=== PATIENT | male | born 1955 | race Caucasian/White ===

== ENCOUNTER 2017-08-22 16:42 | Inpatient (IN) ==
[2017-08-22] MEDS ORDERED: 0.9 % Sodium Chloride 1,000 ML IVC ONE (17:08)
--- NOTE | 2017-08-22 17:10 | Emergency Department Note ---
Disposition Clinical Impression: Afib Qualifiers: Atrial fibrillation type: unspecified Qualified Code(s): I48.91 - Unspecified atrial fibrillation CHF (congestive heart failure) Qualifiers: Heart failure type: unspecified Heart failure chronicity: unspecified Qualified Code(s): I50.9 - Heart failure, unspecified Disposition: Admitted As Inpatient Condition: Fair Referrals: Nalini Romero MD [Partnered Physician] - Tammy Cotter [Partnered Physician] - Forms: ED Satisfaction Letter Time of Disposition: 19:10 Arrhythmia/Palpitations HPI - General Chief Complaint: ED Arrhythmia/Palpitations Stated Complaint: High heart rate Time Seen by Provider: 08/22/17 17:01 Source: patient Mode of arrival: ambulatory Limitations: no limitations Nursing Notes Reviewed: Yes Vital Signs Reviewed: Yes - History of Present Illness HPI Narrative: 62-year-old male with a history of tobacco use presents for evaluation for a fast heart rate. Patient states he was evaluated with an echo prior to arrival they noted his heart rate was beating fast. Patient denies history of A. fib. Patient states that symptoms initially were approximately 5-6 weeks ago started with a dry cough. Since in the bases noted progressive shortness of breath. Patient has any fevers. Patient denies any chest pain or palpitations. Patient denies any history of known diagnosis of A. fib. Denies history of blood clots in his lungs are's legs. Patient denies any abdominal pain. No nausea or vomiting. Patient states he does not see a doctor regularly and has recently started with regular doctor appointment within the past month. - Related Data Home Medications Medication Instructions Recorded Confirmed Acetylcysteine [Nac] 500 mg PO DAILY 08/22/17 08/22/17 Benzonatate [Tessalon] 1 cap PO TID PRN 08/22/17 08/22/17 Furosemide [Lasix] 20 mg PO DAILY 08/22/17 08/22/17 Allergies Allergy/AdvReac Type Severity Reaction Status Date / Time No Known Allergies Allergy Verified 08/22/17 16:44 All systems ED: reviewed and negative except as stated. Constitutional: Denies: fever Cardiovascular: Denies: chest pain Respiratory: Reports: cough, dyspnea. Denies: sputum production Gastrointestinal: Denies: abdominal pain, nausea, vomiting Past Medical History - Past Medical History Source: patient Medical history: Reports: no medical history Psychiatric history: Reports: no psych history - Social History Smoking Status: Current every day smoker Smokeless Tobacco Status: No Alcohol use: Reports: occasionally Drug use: Reports: none Physical Exam - General Limitations: no limitations General appearance: alert, in no apparent distress - Head Head exam: atraumatic, normocephalic, normal inspection - Eye Eye exam: Present: normal appearance, PERRL, EOMI - ENT ENT exam: normal exam, normal oropharynx, mucous membranes moist - Neck Neck exam: Present: normal inspection, full ROM, trachea midline - Chest Chest inspection: Present: normal inspection, symmetric chest wall rise - Respiratory Respiratory exam: Present: normal lung sounds bilaterally. Absent: respiratory distress - Cardiovascular Cardiovascular exam: Present: tachycardia, irregular rhythm. Absent: systolic murmur - Abdominal Exam Abdominal exam: Present: soft, Non-Tender - Extremities Exam Extremities exam: Present: normal inspection. Absent: pedal edema - Expanded Lower Extremity Exam Neurovascular/Tendon exam: Present: normal capillary refill - Back Exam Back exam: Present: normal inspection, full ROM. Absent: tenderness - Neurological Exam Neurological exam: Present: alert, oriented X3 - Skin Skin exam: Present: warm, dry, intact, normal color Course Course Narrative: Patient blood pressure is preserved with a heart rate in the 150s to 170s. Patient will get basic labs, EKG troponin as well as rate control with Cardizem. Disposition admission. - Reevaluation(s) Reevaluation #1: Patient seen and examined. Patient's heart rate has improved. Patient awaiting a CT of the chest given a positive d-dimer. Time: 18:19 - Consultations Consultation #1: Spoke with Cardiology. Recommend heparin. Also recommends metoprolol 5IV and 25mg PO XL. Diuresis as tolerated with blood pressure. Time: 19:08 Vital Signs Temperature 97.8 F 08/22/17 16:45 Pulse Rate 172 08/22/17 16:45 Respiratory Rate 18 08/22/17 16:45 Blood Pressure 123/85 08/22/17 16:45 O2 Sat by Pulse Oximetry 98 08/22/17 16:45 Temperature 97.8 F 08/22/17 16:45 Pulse Rate 126 08/22/17 18:53 Respiratory Rate 16 08/22/17 18:53 Blood Pressure 107/96 08/22/17 18:53 O2 Sat by Pulse Oximetry 97 08/22/17 18:53 Oxygen Delivery Oxygen Delivery Room Air Arrhythmia/Palpitations - MDM Narrative Medical decision making narrative: 62-year-old male percent for evaluation of A. fib. Patient had an echo obtained earlier today which showed evidence of heart failure. Patient initially was started on Cardizem bolus however given the element of heart failure bushra was secondarily given. Patient had a CTA which showed no evidence of central or subsegmental pulmonary embolism here patient did have an elevated troponin. Patient is given an aspirin. Patient was also heparinized given his history of heart failure as well as A. fib. Patient denies any dark tarry stools or blood in stool no contraindications to heparinizing. Patient will be admitted to hospital service. Cardiology consult completed. - Lab Data Lab results reviewed: Yes I reviewed the patient's lab results. Result diagrams: 08/22/17 16:55 08/22/17 16:55 Lab Results 08/22/17 08/22/17 08/22/17 Range/Units 16:55 16:55 16:55 WBC 9.5 (4.3-11.1) K/mcL RBC 4.53 (4.19-5.50) M/mcL Hgb 14.9 (12.9-16.9) g/dL Hct 44.4 (37.5-50.1) % MCV 98.0 (83.0-100.0) fL MCH 32.9 (28.0-33.3) pg MCHC 33.6 (31.6-35.5) g/dL RDW 13.6 (11.5-14.5) % Plt Count 179 (140-400) K/mcL MPV 11.1 (9.4-12.4) fL Immature Gran % 0.3 (0-4) % Seg Neutrophils % 73.5 % Lymphocytes % 13.5 % Monocytes % 9.1 % Eosinophils % 2.8 % Basophils % 0.8 % Neutrophils # 7.0 (1.6-8.9) K/mcL Lymphocytes # 1.3 (0.6-4.6) K/mcL Monocytes # 0.9 (0.0-1.3) K/mcL Eosinophils # 0.3 (0.0-0.6) K/mcL Basophils # 0.1 (0.0-0.2) K/mcL PT (9.4-12.1) Seconds INR APTT (26.0-36.0) Seconds D-Dimer (0-500) ng/mLFEU Sodium 134 L (136-145) mEq/L Potassium 4.0 (3.5-5.1) mEq/L Chloride 103 (98-107) mEq/L Carbon Dioxide 23 (23-29) mEq/L BUN 17 (8-23) mg/dL Creatinine 0.85 (0.70-1.30) mg/dL Est GFR ( Amer) > 60 (> 60) Est GFR (Non-Af Amer) > 60 (> 60) BUN/Creatinine Ratio 20 (6-26) Glucose 96 (70-105) mg/dL Calculated Osmolality 279 L (280-300) Calcium 9.8 (8.6-10.3) mg/dL Troponin I 0.05 H* (< 0.04) ng/mL 08/22/17 Range/Units 16:55 WBC (4.3-11.1) K/mcL RBC (4.19-5.50) M/mcL Hgb (12.9-16.9) g/dL Hct (37.5-50.1) % MCV (83.0-100.0) fL MCH (28.0-33.3) pg MCHC (31.6-35.5) g/dL RDW (11.5-14.5) % Plt Count (140-400) K/mcL MPV (9.4-12.4) fL Immature Gran % (0-4) % Seg Neutrophils % % Lymphocytes % % Monocytes % % Eosinophils % % Basophils % % Neutrophils # (1.6-8.9) K/mcL Lymphocytes # (0.6-4.6) K/mcL Monocytes # (0.0-1.3) K/mcL Eosinophils # (0.0-0.6) K/mcL Basophils # (0.0-0.2) K/mcL PT 11.3 (9.4-12.1) Seconds INR 1.1 APTT 26.4 (26.0-36.0) Seconds D-Dimer 1223 H (0-500) ng/mLFEU Sodium (136-145) mEq/L Potassium (3.5-5.1) mEq/L Chloride (98-107) mEq/L Carbon Dioxide (23-29) mEq/L BUN (8-23) mg/dL Creatinine (0.70-1.30) mg/dL Est GFR ( Amer) (> 60) Est GFR (Non-Af Amer) (> 60) BUN/Creatinine Ratio (6-26) Glucose (70-105) mg/dL Calculated Osmolality (280-300) Calcium (8.6-10.3) mg/dL Troponin I (< 0.04) ng/mL - Radiology Data Radiology results reviewed: Yes I reviewed the patient's radiology results. Chest X-Ray 08/22/17 17:04 IMPRESSION: Findings suggest the possibility of congestive heart failure D/ / Jong Shah MD / Jong Shah MD Interpreting Provider: Jong Shah MD Chest CTA 08/22/17 18:05 IMPRESSION: 1. Limited evaluation of subsegmental pulmonary artery branches secondary to respiratory motion artifact. No central or segmental pulmonary embolism is detected. 2. Nonspecific appearance of the remainder of the study, with bronchial wall thickening and alveolar ground-glass opacity. That could be secondary to pulmonary edema, especially given the interlobular septal thickening. However, infectious bronchitis/alveolitis would be considered as well. D/ / Cipriano Gomez MD / Cipriano Gomez MD Interpreting Provider: Cipriano Gomez MD - EKG Data EKG attestation: Yes I reviewed and interpreted this EKG. Rate: tachycardia Rhythm: A.Fib [place]/QRS: normal When compared to previous EKG there are: changes noted Interpretation: nonspecific ST-T wave changes S.B.A.R. - S.B.A.R. Situation: Demographics Background: Presenting Complaint Assessment: Vital Signs, Course and respsone to treatment, Patient/Family Expectation Recommendation: Barrier(s) to disposition, Recommendation based on pending studies, treatments, or consults S.B.A.R. Report Given to: Dilip Forte Repor Time: 18:44 Attestation Statement - Attestation Attestation: I examined this patient and my medical decision-making was reviewed with the Resident Physician. I agree with the documented findings, disposition and treatment plan as described except to the extent set forth below. Patient to the ED with a chief complaint of atrial fibrillation. Patient with today for an outpatient echo as ordered by his PCP. He was found to be in atrial fibrillation. Patient states he has not felt well for a few weeks. He has not been sleeping well. Denies palpitations. He has had some dyspnea on exertion. Patient is in no acute distress on examination. Satting well on room air. Heart tachycardia and irregularly irregular. Plan. CHF workup. Patient's in atrial fibrillation on his EKG with a rate in the 160s. Starting Cardizem. We will discuss with cords. 35 minutes of critical care exclusive of separately billable procedures.
[2017-08-22 17:23] LABS: Basophils # 0.1 K/mcL (0.0-0.2); Basophils % 0.8 %; Eosinophils # 0.3 K/mcL (0.0-0.6); Eosinophils % 2.8 %; Hematocrit 44.4 % (37.5-50.1); Hemoglobin 14.9 g/dL (12.9-16.9); Immature Granulocytes % 0.3 % (0-4); Lymphocytes # 1.3 K/mcL (0.6-4.6); Lymphocytes % 13.5 %; Mean Corpuscular HGB Conc 33.6 g/dL (31.6-35.5); Mean Corpuscular Hemoglobin 32.9 pg (28.0-33.3); Mean Platelet Volume 11.1 fL (9.4-12.4); Monocytes # 0.9 K/mcL (0.0-1.3); Monocytes % 9.1 %; Platelet Count 179 K/mcL (140-400); Red Blood Count 4.53 M/mcL (4.19-5.50); Red Cell Distribution Width 13.6 % (11.5-14.5); Segmented Neutrophils % 73.5 %
[2017-08-22 17:38] LABS: BUN/Creatinine Ratio 20 (6-26); Blood Urea Nitrogen 17 mg/dL (8-23); Calcium 9.8 mg/dL (8.6-10.3); Carbon Dioxide 23 mEq/L (23-29); Chloride 103 mEq/L (98-107); Glucose 96 mg/dL (70-105); Osmolality,Calculated 279 (280-300); Sodium 134 mEq/L (136-145); eGFR For Non-African Americans > 60 (> 60)
[2017-08-22 18:01] LABS: INR 1.1; Prothrombin Time 11.3 Seconds (9.4-12.1)
[2017-08-22 18:03] LABS: Activated Partial Thrombo Time 26.4 Seconds (26.0-36.0)
[2017-08-22] MEDS ORDERED: *HR* Heparin 5,000 UNIT/ML VIAL IVP ONE (18:51)
[2017-08-22] MEDS ORDERED: *HR* Metoprolol 5 MG/5 ML VIAL IVP ONE (18:55)
[2017-08-22] MEDS: Heparin 25,000 UNIT/500 ML D5W 25,000 UNIT/500 ML BAG IVC SCH (19:11)
[2017-08-22 19:15] LABS: INR 1.1; Prothrombin Time 12.2 Seconds (9.4-12.1)
[2017-08-22 19:17] LABS: Activated Partial Thrombo Time 26.5 Seconds (26.0-36.0)
[2017-08-22 19:28] LABS: Thyroid Stimulating Hormone 1.695 mcIU/mL (0.340-5.600)
[2017-08-22] MEDS ORDERED: Amiodarone Premix 360 MG/200 ML BAG IVC ONE (19:46)
[2017-08-23] MEDS ORDERED: *HR* HYDROcodone/Acet 5/325 mg TABLET PO PRN
[2017-08-23] MEDS ORDERED: Naloxone 0.4 MG/ML INJ IVP PRN
--- NOTE | 2017-08-23 00:11 | Internal Med History&Physical ---
Date of Encounter: 08/23/17 Time of Encounter: 00:07 Assessment and Plan (1) Atrial fibrillation Current visit: Yes Status: Acute 62/male Admitted from emergency room for evaluation of new onset of atrial fibrillation. Had recent echocardiogram done: Ejection fraction: 20/25 percent. On examination Mildly elevated JVP. Bilateral basal crepitations. S3 present. Trace pedal edema. Assessment: New onset of atrial fibrillation likely secondary to cardiomyopathy possibly secondary to coronary artery disease/ischemic heart disease Plan: Admit as inpatient. Cardiology consult. Cycle troponin. IV Cardizem is contraindicated as patient's ejection fraction is less than 35%. Intravenous heparin as a anticoagulation. Intravenous amiodarone for rate control. Cardiology was informed about admission from the emergency room. Nothing by mouth from midnight for possible procedure tomorrow. I have examined this patient in 2 N Briefly discussed above with the patient. Patient verbalized understanding. Qualifiers: Atrial fibrillation type: unspecified Qualified Code(s): I48.91 - Unspecified atrial fibrillation (2) Systolic congestive heart failure Current visit: Yes Status: Acute New-onset of systolic congestive heart failure. We will await for cardiology recommendation. Qualifiers: Heart failure chronicity: unspecified Qualified Code(s): I50.20 - Unspecified systolic (congestive) heart failure (3) Smoking addiction Current visit: Yes Status: Acute (4) Obesity Current visit: Yes Status: Acute Qualifiers: Obesity type: unspecified obesity type Obesity classification: unspecified obesity classification Serious obesity comorbidity presence: unspecified whether serious comorbidity present Qualified Code(s): E66.9 - Obesity, unspecified (5) DVT prophylaxis Current visit: Yes Status: Acute Heparin drip Medical decision making: This patient has a moderate to severe risk of worsening in spite of being on appropriate medication to the underlying chronic comorbid conditions. Internal Medicine - H&P: HPI Chief complaint: shortness of breath Admitted From: Emergency Dept Plans for Post Hospital Care: Home History of present illness: PCP: Heather Gayle Nurse Leader : None Brief PMH: None HPI: Patient claims that around 6 weeks ago he started having dry cough which was lasted long more than expectoration. During this episode of dry cough patient noted that his frequency of palpitations and was progressively getting worse. Patient was getting better on a few occasions but noted that on the minimal exertion he was a short of breath. Patient was evaluated by primary care provider and recommended to get an echocardiogram. Patient came to this hospital today for echocardiogram and it was noted that during the echocardiogram patient was in atrial fibrillation with a rapid ventricular rate. Patient was sent to emergency room for further evaluation. Workup in the emergency room: Patient was evaluated in the emergency room. Patient was started on heparin drip/amiodarone drip as per recommendations by cardiology. Noted that limited echocardiogram showed patient's ejection fraction is 20-25% Reason for admission: Newly diagnosed acute systolic congestive heart failure with atrial fibrillation. Possible etiology: atherosclerotic coronary disease. Family history: Noncontributory Past Med Surg Social Fam HX - Past Medical History Medical history: no medical history Psychiatric history: no psych history - Social History Smoking Status: Current every day smoker Smokeless Tobacco Status: No Alcohol use: occasionally Drug use: none Internal Medicine - H&P: Meds Acetylcysteine [Nac] 500 mg PO DAILY 08/22/17 [History] Benzonatate [Tessalon] 1 cap PO TID PRN 08/22/17 [History] Furosemide [Lasix] 20 mg PO DAILY 08/22/17 [History] 3 Allergy/AdvReac Type Severity Reaction Status Date / Time No Known Allergies Allergy Verified 08/22/17 16:44 All Systems PM: A 10-system review of systems was performed and is negative for pertinent findings except as documented above in the HPI. - Constitutional Constitutional: no chills, no fever(s), no night sweats - EENT Eyes: no change in vision, no discharge, no pain, no photophobia Ears: no ear discharge, no ear pain, no tinnitus Nose, mouth and throat: no dysphagia, no nasal discharge, no neck pain, no sore throat - Cardiovascular Cardiovascular ROS IM: no chest pain, no diaphoresis, no dyspnea, no lightheadedness, no palpitations, no syncope - Respiratory Respiratory: no cough, no dyspnea, no wheezing, no excessive phlegm production - Gastrointestinal Gastrointestinal: no abdominal pain, no diarrhea, no hematemesis, no hematochezia, no melena, no nausea, no vomiting - Musculoskeletal Musculoskeletal ROS IM: no numbness, no tingling - Integumentary Integumentary IM: no rash, no unusual bruising - Neurological Neurological ROS: no confusion, no convulsions, no focal weakness, no numbness, no tingling, no tremor(s) - Hematologic/Lymphatic Hematologic/Lymphatic: no easy bruising - Constitutional Vitals: Temp Pulse Resp BP Pulse Ox 98.6 F 159 20 117/107 98 08/22/17 21:04 08/22/17 21:04 08/22/17 21:04 08/22/17 21:04 08/22/17 21:04 General appearance: Present: A&O X 3, pleasant, no acute distress, answers questions appropriately - Head Head exam: Present: atraumatic, normocephalic - Eye Eye exam: Present: PERRL, conjuntiva pink, sclera anicteric Pupils: Present: PERRL - Neck Neck exam general surgery: Present: supple, trachea midline. Absent: lymphadenopathy - Respiratory Respiratory exam: Present: CTAB. Absent: accessory muscle use, rales, rhonchi, wheezes - Cardiovascular Cardiovascular exam: Present: RRR, +S1, +S2. Absent: diastolic murmur, gallop, rubs, systolic murmur - GI/Abdominal GI/Abdominal exam: Present: normal bowel sounds, soft, no peritoneal signs. Absent: distended, tenderness - Extremities Exam Extremities exam: Present: warm, radial pulses palpable and symmetrical. Absent : calf tenderness, cyanotic, pedal edema - Neurological Exam Neurological exam: Present: CN II-XII intact, oriented X3, no focal deficits. Absent: pronater drift, facial droop, speech deficit - Skin Skin exam: Present: dry, intact Internal Med - H&P Results - Labs CBC & Chem 7: 08/22/17 16:55 08/22/17 16:55 Labs: Cardiac Enzymes 08/22/17 Range/Units 22:24 Troponin I < 0.03 (< 0.04) ng/mL
[2017-08-23 01:22] LABS: Basophils # 0.1 K/mcL (0.0-0.2); Basophils % 1.1 %; Eosinophils # 0.2 K/mcL (0.0-0.6); Eosinophils % 2.7 %; Hematocrit 40.8 % (37.5-50.1); Hemoglobin 13.9 g/dL (12.9-16.9); Immature Granulocytes % 0.4 % (0-4); Lymphocytes # 1.3 K/mcL (0.6-4.6); Lymphocytes % 15.8 %; Mean Corpuscular HGB Conc 34.1 g/dL (31.6-35.5); Mean Corpuscular Volume 96.9 fL (83.0-100.0); Mean Platelet Volume 11.3 fL (9.4-12.4); Monocytes # 0.8 K/mcL (0.0-1.3); Monocytes % 9.8 %; Neutrophils # 5.8 K/mcL (1.6-8.9); Platelet Count 168 K/mcL (140-400); Red Blood Count 4.21 M/mcL (4.19-5.50); Red Cell Distribution Width 13.7 % (11.5-14.5); Segmented Neutrophils % 70.2 %
[2017-08-23] MEDS: 0.9 % Sodium Chloride 1,000 ML IVC SCH ×2 (01:35→15:09)
[2017-08-23 01:44] LABS: Alanine Aminotransferase 31 Units/L (7-52); Albumin 3.9 g/dL (3.5-5.7); Albumin/Globulin Ratio 1.8 (1.1-2.2); Alkaline Phosphatase 55 Units/L (34-104); Aspartate Amino Transferase 32 Units/L (13-39); BUN/Creatinine Ratio 24 (6-26); Bilirubin,Total 1.2 mg/dL (0.3-1.0); Blood Urea Nitrogen 18 mg/dL (8-23); Calcium 9.4 mg/dL (8.6-10.3); Carbon Dioxide 21 mEq/L (23-29); Chloride 108 mEq/L (98-107); Chol/HDL Ratio 3.1 (0-4.9); Cholesterol 162 mg/dL (< 200); Globulin 2.2 g/dL (2.4-3.5); Glucose 110 mg/dL (70-105); HDL Cholesterol 53 mg/dL (40-59); LDL Cholesterol,Calculated 92 mg/dL (0-99); Osmolality,Calculated 285 (280-300); Phosphorous 3.7 mg/dL (2.7-4.5); Potassium 4.1 mEq/L (3.5-5.1); Sodium 136 mEq/L (136-145); Total Protein 6.1 g/dL (6.4-8.9); Triglycerides 85 mg/dL (< 150); eGFR For Non-African Americans > 60 (> 60)
[2017-08-23] MEDS ORDERED: Amiodarone Premix 360 MG/200 ML BAG IVC ONE (02:38)
[2017-08-23] MEDS ORDERED: Amiodarone Premix 360 MG/200 ML BAG IVC SCH (02:45)
[2017-08-23] MEDS: Heparin 25,000 UNIT/500 ML D5W 25,000 UNIT/500 ML BAG IVC SCH (09:19)
--- NOTE | 2017-08-23 11:08 | Internal Med Progress Note ---
Date of Encounter: 08/23/17 Time of Encounter: 10:25 - Assessment and plan (1) Atrial fibrillation with RVR Current Visit: Yes Status: Acute Assessment and plan: New onset A. fib and found be in A. fib with RVR. Troponin initially midly elevated at 0.05 then 2 negative troponins. Most likely a fib 2/2 to systolic CHF. Patient is still in A. fib with RVR. Patient was initially placed on a Cardizem drip and then switched to amiodarone drip. Cardiology is following and appreciate recommendations. Echo 08/22/17 showed an EF of 20-25%, Severe global left ventricular systolic dysfunction, severely dilated L atrium. Plan: - stop Amiodarone drip and add metoprolol 25mg, per cardiology - Heparin drip - possible [facility] on Saturday - diet: cardiac diet (2) Systolic congestive heart failure Current Visit: Yes Status: Acute Assessment and plan: Echo 08/22/17 showed EF 20-25% with severe systolic dysfunction of LV - will consider adding ASHISH after BP increase - plan for [facility], possibly saturday Qualifiers: Heart failure chronicity: unspecified Qualified Code(s): I50.20 - Unspecified systolic (congestive) heart failure (3) DVT prophylaxis Current Visit: Yes Status: Acute Assessment and plan: heparin drip (4) Smoking addiction Current Visit: Yes Status: Acute - Subjective Interval history: 62-year-old male who presented to the ED after echo showing 20-25% EF patient is found to be in A. fib with RVR and acute systolic congestive heart failure. Today patient states that he is not having any chest pain, shortness of breath, palpitations, dizziness. Patient states that he did not have any of these symptoms upon arrival and came in due to abnormal echo. Temporary review of systems is negative except what is written in history of present illness. - Constitutional Vitals: Temp Pulse Resp BP Pulse Ox 98.3 F 136 20 109/89 98 08/23/17 08:10 08/23/17 10:20 08/23/17 10:20 08/23/17 10:20 08/23/17 10:20 General appearance: Present: A&O X 3, pleasant, no acute distress, answers questions appropriately Exam: Constitutional: Alert, in no acute distress, well nourished, well developed. Head: Normocephalic, atraumatic, normal contour and symmetric, no masses, lesions or scars Heart: irregularly irregular rhythm, no murmurs Lungs: Clear to auscultation, no wheezes, rales, or rhonchi Abdomen: Soft, nondistended, nontender, and no masses palpable, bowel sounds present and normal, no guarding or rigidity. Extremities: No clubbing, cyanosis, or edema, radial pulse +2/4, capillary refill <2sec. Skin: Skin warm and dry, no lesions, no rashes, no jaundice Neurologic: Cranial nerves II through XII grossly intact, no focal deficits, strength within normal limits in all extremities Psych: Cooperative with exam, good eye contact, cognitive function intact, judgment good insight good, speech clear, thought process logical, and goal directed Internal Medicine: Result - Labs CBC & Chem 7: 08/23/17 01:04 08/23/17 01:04 Labs: Short CBC 08/23/17 Range/Units 01:04 WBC 8.3 (4.3-11.1) K/mcL Hgb 13.9 (12.9-16.9) g/dL Hct 40.8 (37.5-50.1) % Plt Count 168 (140-400) K/mcL Neutrophils # 5.8 (1.6-8.9) K/mcL BMP 08/23/17 01:04 Sodium 136 Potassium 4.1 Chloride 108 H Carbon Dioxide 21 L BUN 18 Creatinine 0.76 Glucose 110 H Calcium 9.4 Cardiac Enzymes 08/22/17 08/23/17 08/23/17 Range/Units 22:24 01:04 06:23 Troponin I < 0.03 < 0.03 < 0.03 (< 0.04) ng/mL Liver Function 08/23/17 Range/Units 01:04 Total Bilirubin 1.2 H (0.3-1.0) mg/dL AST 32 (13-39) Units/L ALT 31 (7-52) Units/L Alkaline Phosphatase 55 (34-104) Units/L Albumin 3.9 (3.5-5.7) g/dL - ABG Interpretation ABG results: PT/INR, D-dimer PT 12.2 Seconds (9.4-12.1) H 08/22/17 18:58 D-Dimer 1223 ng/mLFEU (0-500) H 08/22/17 16:55 Consult Discharge Plan - Plan Referrals: Nalini Romero MD [Primary Care Provider] - 08/30/17 12:00 pm (8:30 appointment for 08/30 cancelled)
--- NOTE | 2017-08-23 11:12 | Cardiology Consult Note ---
<Mary Lou Villalobos Dann - Last Filed: 08/23/17 13:16> Date of Encounter: 08/23/17 Time of Encounter: 09:00 Assessment and Plan (1) Afib Current Visit: Yes Status: Acute Per cardiology: -No previous history of a.fib. Admitted with a.fib RVR. -[id number] score 1 (CHF). Currently on heparin drip. -Was started on amiodarone drip per primary service. -Average HR previous 12 hours noted to be 117, a.fib. -Denies symptoms. -Discussed and reviewed with , will stop amiodarone drip and will start beta bushra. -Will continue to monitor. Qualifiers: Atrial fibrillation type: unspecified Qualified Code(s): I48.91 - Unspecified atrial fibrillation (2) Cardiomyopathy Current Visit: Yes Status: Acute Per cardiology: -TTE with LVEF 20-25% global hypokinesis, mild LVH, mildly dilated LV, mildly dilated and hypokinetic RV, severely dilated LA, mild MR, mild PH. -Denies previous cardiac testing. -Possibly tachycardia induced, aymptomatic in a.fib RVR. -Will add beta bushra. -Consider adding kalee inhibitor if BP will tolerate. -Plan for [facility] possibly Saturday. -Will continue to monitor. Qualifiers: Cardiomyopathy type: unspecified Qualified Code(s): I42.9 - Cardiomyopathy , unspecified Discussion w patient/family: The assessment and plan as outlined above was discussed with the patient who expressed understanding and agreement. All questions were answered. Thank you for involving us in the care of your patient. Please call with any questions. Discussed and reviewed with . History of Present Illness Consult date: 08/22/17 Requesting physician: Adiel Rahman Consult reason: a.fib RVR, cardiomyopathy Chief complaint: shortness of breath History of present illness: Mr. Aburto is a 62 year old male with a relevant past medical history of varicose veins. Denies other medical history. Patient presented to [facility] for an outpatient echocardiogram. TTE was ordered by PCP for shortness of breath. 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 Patient denies chest pain, however states has had some chest heaviness while laying flat. Admits to increased shortness of breath. Denies palpitations or fluttering. Denies current chest pain/heaviness. Denies increased edema or weight gain. Patient reports recent cold like symptoms. Past Med Surg Social Fam HX - Past Medical History Attestation: Yes The following information was validated with the patient. Source: patient, old records reviewed Medical history: no medical history Psychiatric history: no psych history - Social History Smoking Status: Current every day smoker Smokeless Tobacco Status: No Alcohol use: occasionally Drug use: none Medications and Allergies Acetylcysteine [Nac] 500 mg PO DAILY 08/22/17 [History] Benzonatate [Tessalon] 1 cap PO TID PRN 08/22/17 [History] Furosemide [Lasix] 20 mg PO DAILY 08/22/17 [History] 3 Allergy/AdvReac Type Severity Reaction Status Date / Time No Known Allergies Allergy Verified 08/22/17 16:44 All Systems Review: The remainder of the systems were reviewed and are negative - Cardiovascular Cardiovascular: as per HPI, dyspnea at rest, dyspnea on exertion Physical Examination Vital Signs, Last 4 Hours Temp Pulse Resp BP Pulse Ox 08/23/17 10:20 136 20 109/89 98 08/23/17 08:11 98 08/23/17 08:10 98.3 F 107 20 121/92 98 08/23/17 08:01 128 08/23/17 07:57 98.3 F 124 20 112/81 96 General: Conversant, No Apparent Distress HEENT: Atraumatic, Normocephaly, Mucus Membranes Moist Neck: No JVD, Normal carotid pulses Cardiac: Normal S1 and S2, No Murmur, Other (Irregularly, irregular. Tachycardic. ) Lungs: Normal Breath Sounds, No Wheeze, Rales, Rhonchi Neuro: Alert and responsive, No focal deficits noted Abdomen: Soft, Non-Tender Skin: No rashes noted on visualized skin Musculoskeletal: No Chest Wall Tenderness Extremities: No Clubbing, No Cyanosis, No Edema, Normal Pulses Results 08/23/17 01:04 08/23/17 01:04 Lab Results Impressions Chest X-Ray 08/22/17 17:04 IMPRESSION: Findings suggest the possibility of congestive heart failure D/ / Jong Shah MD / Jong Shah MD Interpreting Provider: Jong Shah MD Chest CTA 08/22/17 18:05 IMPRESSION: 1. Limited evaluation of subsegmental pulmonary artery branches secondary to respiratory motion artifact. No central or segmental pulmonary embolism is detected. 2. Nonspecific appearance of the remainder of the study, with bronchial wall thickening and alveolar ground-glass opacity. That could be secondary to pulmonary edema, especially given the interlobular septal thickening. However, infectious bronchitis/alveolitis would be considered as well. D/ / Cipriano Gomez MD / Cipriano Gomez MD Interpreting Provider: Cipriano Gomez MD Active Medications Hydrocodone Bitart/Acetaminophen ([place] 5-325 Mg) 1 tab PO Q6HR PRN PRN Reason: Moderate Pain Stop: 02/22/18 00:01 Last Admin: 08/23/17 01:35 Dose: 1 tab Heparin Sodium/Dextrose (Heparin 25,000 Unit/500 Ml D5w) 25,000 unit in 500 mls @ 33.58 mls/hr IVC .[id number] ANDREAS; 14 UNIT/KG/HR PRN Reason: Protocol Stop: 02/21/18 19:01 Last Admin: 08/23/17 09:19 Dose: 13.99 unit/kg/hr, 33.58 mls/hr Sodium Chloride (0.9 % Sodium Chloride) 1,000 mls @ 70 mls/hr IVC .[id number] ADNREAS Stop: 08/24/17 04:34 Last Admin: 08/23/17 01:35 Dose: 70 mls/hr Amiodarone HCl/Dextrose (Amiodarone Drip Premix 360mg/200ml) 360 mg in 200 mls @ 16.667 mls/hr IVC CONT ANDREAS PRN Reason: 0.5 MG/MIN Stop: 02/22/18 02:46 Last Admin: 08/23/17 03:29 Dose: 0.5 mg/min, 16.667 mls/hr Naloxone HCl (Narcan) 0.4 mg IVP Q2MIN PRN PRN Reason: SEE COMMENTS Stop: 02/22/18 00:01 Laboratory Tests 08/22/17 08/22/17 08/22/17 16:55 16:55 16:55 Hgb Potassium Creatinine Magnesium Troponin I 0.05 H* B-Natriuretic Peptide 510 H LDL Cholesterol, Calc TSH 1.695 08/22/17 08/23/17 08/23/17 22:24 01:04 01:04 Hgb 13.9 Potassium Creatinine Magnesium Troponin I < 0.03 < 0.03 B-Natriuretic Peptide LDL Cholesterol, Calc TSH 08/23/17 08/23/17 01:04 06:23 Hgb Potassium 4.1 Creatinine 0.76 Magnesium 2.0 Troponin I < 0.03 B-Natriuretic Peptide LDL Cholesterol, Calc 92 TSH - Imaging and Cardiology Chest Xray: report reviewed Echo: report reviewed - EKG Interpretation EKG results cardiology: personally reviewed (ECG with eden RVR.), other ( Telemetry reviewed with average HR previous 12 hours noted to be 117, atrial fibrillation. PVCs noted.) Consult Discharge Plan - Plan Referrals: Nalini Romero MD [Primary Care Provider] - 08/30/17 12:00 pm (8:30 appointment for 08/30 cancelled) <Jesus Tineo - Last Filed: 08/23/17 14:13> Date of Encounter: 08/23/17 - Attending Attestation 62 YOM with new onset CM global HK EF 25% with severe LAE. Patient denies palpitations with likely Afib RVR for a prolonged time. Patient currently with SOB and some chest discomfort. Negative trops and unremarkable changes on ekg other than afib. Continue IV heparin and hold amiodarone. Will attempt rate control with BB/CCB then LHC to rule out CAD/ICM. Patient may require YUMIKO/CVE if rate control not achieved. Assessment and Plan Discussion w patient/family: The assessment and plan as outlined above was discussed with the patient and/or family members who expressed understanding and agreement. All questions were answered. Thank you for involving us in the care of your patient. Please call with any questions. History of Present Illness History of present illness: Mr. Aburto is a 62 year old male All Systems Review: The remainder of the systems were reviewed and are negative Physical Examination Vital Signs, Last 4 Hours Temp Pulse Resp BP Pulse Ox 08/23/17 14:02 131 18 114/88 96 08/23/17 12:17 107 20 110/98 99 08/23/17 11:22 98.5 F 107 19 116/99 94 08/23/17 10:20 136 20 109/89 98 Results 08/23/17 01:04 08/23/17 01:04 Lab Results 08/22/17 08/23/17 08/23/17 22:24 01:04 01:04 WBC Hgb Hct Plt Count APTT 73.6 H D Sodium Potassium Chloride Carbon Dioxide BUN Creatinine Glucose Calcium Magnesium Total Bilirubin AST ALT Alkaline Phosphatase Troponin I < 0.03 TSH 2.553 08/23/17 08/23/17 08/23/17 01:04 01:04 01:04 WBC 8.3 Hgb 13.9 Hct 40.8 Plt Count 168 APTT Sodium 136 Potassium 4.1 Chloride 108 H Carbon Dioxide 21 L BUN 18 Creatinine 0.76 Glucose 110 H Calcium 9.4 Magnesium 2.0 Total Bilirubin 1.2 H AST 32 ALT 31 Alkaline Phosphatase 55 Troponin I < 0.03 TSH 08/23/17 08/23/17 08/23/17 06:23 06:23 12:38 WBC Hgb Hct Plt Count APTT 79.6 H Sodium Potassium Chloride Carbon Dioxide BUN Creatinine Glucose Calcium Magnesium Total Bilirubin AST ALT Alkaline Phosphatase Troponin I < 0.03 < 0.03 TSH
--- NOTE | 2017-08-23 12:07 | Event Note ---
Date of Encounter: 08/23/17 Time of Encounter: 12:03 Patient seen and examined. Admitted overnight by my Colleague, Dr. Ponce. New onset afib, new cardiomyopthy. EF 20-25%. Was on cardizem drip and then stopped. currently on amiodarone drip. Given IV cardizem, IV lopressor, and oral lopressor. Rate is anywhere 100-150 while I was in the room. Trops .<03 x3. Initial trop .05. EKG with no ST or T wave acute changes. Cardiology eval pending. On heparin drip. On cardizem drip. Likely will need ischemic eval. cardiac meds per cardiology Recently had the flu. Possibly myocarditis.
[2017-08-23] MEDS ORDERED: *HR* Heparin 5,000 UNIT/ML VIAL IVP PRN ×2 (15:10)
--- NOTE | 2017-08-23 20:20 | Electrocardiograph Report ---
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
[2017-08-24] MEDS: Heparin 25,000 UNIT/500 ML D5W 25,000 UNIT/500 ML BAG IVC SCH ×2 (00:27→15:39)
[2017-08-24] MEDS ORDERED: *HR* Digoxin 0.5 MG/2 ML AMPUL IVP ONE (00:50)
--- NOTE | 2017-08-24 01:21 | Event Note ---
Date of Encounter: 08/24/17 Time of Encounter: 01:00 Pt has A Fib RVR with HR 140, metoprolol 25 mg po was given at around 10pm, HR get down to 120s but sometime high to 140. SBP 80s-100s. See pt bedside, c/o mild SOB and cannot lay flat. No CP. Pt has normal renal function and WNL K and Mg level. Will try digoxin 0.5mg iv once for tonight. Cont closely monitor HR and BP. Further management per cardio.
[2017-08-24 04:34] LABS: Hematocrit 41.2 % (37.5-50.1); Hemoglobin 13.6 g/dL (12.9-16.9); Mean Corpuscular Hemoglobin 32.3 pg (28.0-33.3); Mean Corpuscular Volume 97.9 fL (83.0-100.0); Mean Platelet Volume 11.5 fL (9.4-12.4); Platelet Count 138 K/mcL (140-400); Red Blood Count 4.21 M/mcL (4.19-5.50); Red Cell Distribution Width 13.8 % (11.5-14.5)
[2017-08-24 04:51] LABS: BUN/Creatinine Ratio 20 (6-26); Blood Urea Nitrogen 14 mg/dL (8-23); Carbon Dioxide 21 mEq/L (23-29); Chloride 110 mEq/L (98-107); Glucose 109 mg/dL (70-105); Osmolality,Calculated 285 (280-300); Sodium 137 mEq/L (136-145); eGFR For Non-African Americans > 60 (> 60)
[2017-08-24] MEDS ORDERED: *HR* Digoxin 0.5 MG/2 ML AMPUL IVP SCH (06:00)
[2017-08-24] MEDS: Aspirin Enteric Coated 81 MG Tablet PO SCH (08:26)
--- NOTE | 2017-08-24 09:18 | Cardiology Progress Note ---
Date of Encounter: 08/24/17 Time of Encounter: 08:30 Assessment and Plan (1) Afib Current Visit: Yes Status: Acute Per cardiology: -No previous history of a.fib. Admitted with a.fib RVR. -[id number] score 1 (CHF). Currently on heparin drip. -Was started on amiodarone drip per primary service, d/c on 08/23/17. 12 hour tele: 107 a.fib. Episode of RVR last night, given x1 dose of lopressor. HR 90-100's upon exam. Asymptomatic. TSH normal, no acute electrolyte abnormality noted. Chronicity unclear. Recommend rate control strategy for now. Start Toprol XL 12.5 mg today, first dose now--increase as BP will tolerate. Avoid CCB given cardiomyopathy. Continue heparin gtt for now, long-term AC after ischemic evaluation. Qualifiers: Atrial fibrillation type: unspecified Qualified Code(s): I48.91 - Unspecified atrial fibrillation (2) Cardiomyopathy Current Visit: Yes Status: Acute Per cardiology: -TTE with LVEF 20-25% global hypokinesis, mild LVH, mildly dilated LV, mildly dilated and hypokinetic RV, severely dilated LA, mild MR, mild PH. -Denies previous cardiac testing. -Possibly tachycardia induced, aymptomatic in a.fib RVR. Start betablocker. Consider addition of ACEi by discharge if BP will tolerate. Clinically appears euvolemic upon exam. Cumulative I&O: +1090 mL. Plan for LHC on Saturday to r/o ischemic etiology. Will continue to follow. Qualifiers: Cardiomyopathy type: unspecified Qualified Code(s): I42.9 - Cardiomyopathy , unspecified Discussion w patient/family: The assessment and plan as outlined above was discussed with the patient and/or family members who expressed understanding and agreement. All questions were answered. Thank you for involving us in the care of your patient. Please call with any questions. The patient will be discussed and reviewed with Dr. Tineo; changes to be made accordingly. Subjective Principal diagnosis: Afib, CHF Interval history: Seen and examined. No new complaints overnight. Per reports, episode of afib with RVR, was given lopressor x1. Denies chest pain, palpitations, or shortness of breath. Orthopnea improving. Objective Vital Signs, Last 4 Hours Temp Pulse Resp BP Pulse Ox 08/24/17 07:34 98.3 F 87 18 107/81 97 General: Conversant HEENT: Atraumatic, Normocephaly Cardiac: Other (irregularly irregular) Lungs: Normal Breath Sounds Neuro: Alert and responsive Abdomen: Soft Skin: No rashes noted on visualized skin Musculoskeletal: No Chest Wall Tenderness Extremities: No Edema, Normal Pulses Results 08/24/17 04:18 08/24/17 04:18 Lab Results 08/23/17 08/24/17 08/24/17 12:38 04:18 04:18 WBC 7.8 Hgb 13.6 Hct 41.2 Plt Count 138 L APTT Sodium 137 Potassium 4.0 Chloride 110 H Carbon Dioxide 21 L BUN 14 Creatinine 0.69 L Glucose 109 H Calcium 9.0 Troponin I < 0.03 08/24/17 04:18 WBC Hgb Hct Plt Count APTT 71.7 H Sodium Potassium Chloride Carbon Dioxide BUN Creatinine Glucose Calcium Troponin I Active Medications Hydrocodone Bitart/Acetaminophen ([place] 5-325 Mg) 1 tab PO Q6HR PRN PRN Reason: Moderate Pain Stop: 02/22/18 00:01 Last Admin: 08/23/17 01:35 Dose: 1 tab Aspirin (Aspirin Ec) 81 mg PO DAILY [facility] Stop: 02/23/18 09:01 Last Admin: 08/24/17 08:26 Dose: 81 mg Heparin Sodium (Porcine) (Heparin) 8,300 unit 70 unit/kg (8300 unit) IVP Q6HR PRN PRN Reason: SEE COMMENTS Stop: 02/22/18 15:11 Heparin Sodium (Porcine) (Heparin) 4,200 unit 35 unit/kg (4200 unit) IVP Q6H PRN PRN Reason: SEE COMMENTS Stop: 02/22/18 15:11 Heparin Sodium/Dextrose (Heparin 25,000 Unit/500 Ml D5w) 25,000 unit in 500 mls @ 33.58 mls/hr IVC .[id number] ANDREAS; 14 UNIT/KG/HR PRN Reason: Protocol Stop: 02/21/18 19:01 Last Admin: 08/24/17 00:27 Dose: 13.99 unit/kg/hr, 33.58 mls/hr Metoprolol Succinate (Toprol Xl) 12.5 mg PO DAILY [facility] Stop: 02/23/18 09:01 Naloxone HCl (Narcan) 0.4 mg IVP Q2MIN PRN PRN Reason: SEE COMMENTS Stop: 02/22/18 00:01 - Imaging and Cardiology Echo: report reviewed - EKG Interpretation EKG results cardiology: personally reviewed Consult Discharge Plan - Plan Referrals: Nalini Romero MD [Primary Care Provider] - 08/30/17 12:00 pm (8:30 appointment for 08/30 cancelled)
[2017-08-24] MEDS: Metoprolol XL (24 HR) Succ 25 MG TAB.ER.24H PO SCH (09:27)
--- NOTE | 2017-08-24 16:00 | Internal Med Progress Note ---
Date of Encounter: 08/24/17 Time of Encounter: 15:57 - Assessment and plan (1) Atrial fibrillation with RVR Current Visit: Yes Status: Acute Assessment and plan: New onset A. fib and found be in A. fib with RVR. Troponin initially midly elevated at 0.05 then 2 negative troponins. Most likely a fib 2/2 to systolic CHF. Patient is still in A. fib with RVR. Patient was initially placed on a Cardizem drip and then switched to amiodarone drip. Cardiology is following and appreciate recommendations. Echo 08/22/17 showed an EF of 20-25%, Severe global left ventricular systolic dysfunction, severely dilated L atrium. Plan: - metoprolol 25mg, per cardiology - Heparin drip - possible LHC on Saturday - diet: cardiac diet (2) Systolic congestive heart failure Current Visit: Yes Status: Acute Assessment and plan: Echo 08/22/17 showed EF 20-25% with severe systolic dysfunction of LV - will consider adding ASHISH after BP increase - plan for [facility], possibly saturday Qualifiers: Heart failure chronicity: unspecified Qualified Code(s): I50.20 - Unspecified systolic (congestive) heart failure (3) Smoking addiction Current Visit: Yes Status: Acute (4) DVT prophylaxis Current Visit: Yes Status: Acute Assessment and plan: heparin drip - Subjective Interval history: 62-year-old male who presented to the ED after echo showing 20-25% EF patient is found to be in A. fib with RVR and acute systolic congestive heart failure. he waas admitted on 08/22 for SOB, atrail fib with RVR Patient is doing better, he says shortness of breath improved. He denies any palpitation no chest pressure. Heart rate is around 100, continue on heparin drip. He tolerated the beta Vincent. On room air 98% no leg swellings. The plan is to have cardiac cast on Saturday - Constitutional Vitals: Temp Pulse Resp BP Pulse Ox 98.3 F 91 18 100/72 97 08/24/17 11:32 08/24/17 11:32 08/24/17 07:34 08/24/17 11:32 08/24/17 11:32 General appearance: Present: A&O X 3, pleasant, no acute distress, answers questions appropriately Exam: CONSTITUTIONAL: patient appears as an age appropriate male in no acute distress. EYES Clear sclerae, bilateral pupils are equal, reactive to light. EMOI. RESPIRATORY: No accessory muscle use, bilateral clear to auscultation, no wheezing, no crackles/rales. CARDIOVASCULAR: Irregular irregular heart rate, normal S1 and S2, no murmurs GASTROINTESTINAL: bowel sounds present, soft, no tenderness. MUSCULOSKELETAL: Joints in normal range of motion, no clubbing, no edema, no cyanosis. Bilateral peripheral pulses 2+. NEUROLOGIC: CN II to XII are grossly intact, no focal neurological deficit. Internal Medicine: Result - Labs CBC & Chem 7: 08/24/17 04:18 08/24/17 04:18 Labs: Short CBC 08/24/17 Range/Units 04:18 WBC 7.8 (4.3-11.1) K/mcL Hgb 13.6 (12.9-16.9) g/dL Hct 41.2 (37.5-50.1) % Plt Count 138 L (140-400) K/mcL BMP 08/24/17 04:18 Sodium 137 Potassium 4.0 Chloride 110 H Carbon Dioxide 21 L BUN 14 Creatinine 0.69 L Glucose 109 H Calcium 9.0 - ABG Interpretation ABG results: PT/INR, D-dimer PT 12.2 Seconds (9.4-12.1) H 08/22/17 18:58 D-Dimer 1223 ng/mLFEU (0-500) H 08/22/17 16:55 Consult Discharge Plan - Plan Referrals: Nalini Romero MD [Primary Care Provider] - 08/30/17 12:00 pm (8:30 appointment for 08/30 cancelled)
[2017-08-25] MEDS: Heparin 25,000 UNIT/500 ML D5W 25,000 UNIT/500 ML BAG IVC SCH ×2 (05:12→21:21)
[2017-08-25] MEDS: Aspirin Enteric Coated 81 MG Tablet PO SCH (07:18)
[2017-08-25] MEDS: Metoprolol XL (24 HR) Succ 25 MG TAB.ER.24H PO SCH (07:18)
[2017-08-25] MEDS ORDERED: Metoprolol XL (24 HR) Succ 25 MG TAB.ER.24H PO ONE (08:00)
--- NOTE | 2017-08-25 08:25 | Cardiology Progress Note ---
Date of Encounter: 08/25/17 Time of Encounter: 08:00 Assessment and Plan (1) Afib Current Visit: Yes Status: Acute Per cardiology: -No previous history of a.fib. Admitted with a.fib RVR. -Esunb3snia score 1 (CHF). Currently on heparin drip. -Was started on amiodarone drip per primary service, d/c on 08/23/17. 12 hour tele: 98 a.fib, overall heart rate control is improving. Asymptomatic. TSH normal, no acute electrolyte abnormality noted. Chronicity unclear. Recommend rate control strategy for now. Increase Toprol XL to 25 mg today--increase as BP will tolerate. Avoid CCB given cardiomyopathy. Continue heparin gtt for now, long-term AC after ischemic evaluation. Qualifiers: Atrial fibrillation type: unspecified Qualified Code(s): I48.91 - Unspecified atrial fibrillation (2) Cardiomyopathy Current Visit: Yes Status: Acute Per cardiology: -TTE with LVEF 20-25% global hypokinesis, mild LVH, mildly dilated LV, mildly dilated and hypokinetic RV, severely dilated LA, mild MR, mild PH. -Denies previous cardiac testing. -Possibly tachycardia induced, aymptomatic in a.fib RVR. Of note, patient reports today he drinks at least 3-4 beers/day for "years." ? ETOH induced. Continue betablocker. Consider addition of ACEi by discharge if BP will tolerate. Clinically appears euvolemic upon exam. Cumulative I&O: +774 mL. Plan for LHC on Saturday to r/o ischemic etiology. NPO after MN tonight. Will continue to follow. Qualifiers: Cardiomyopathy type: unspecified Qualified Code(s): I42.9 - Cardiomyopathy , unspecified Discussion w patient/family: The assessment and plan as outlined above was discussed with the patient and/or family members who expressed understanding and agreement. All questions were answered. Thank you for involving us in the care of your patient. Please call with any questions. The patient will be discussed and reviewed with Dr. Tineo; changes to be made accordingly. Subjective Principal diagnosis: Afib, CHF Interval history: Seen and examined. No new complaints overnight. Reports heart rates are more controlled with ambulation. Denies chest pain, palpitations, or shortness of breath. Orthopnea nearly resolved. Objective Vital Signs, Last 4 Hours Temp Pulse Resp BP Pulse Ox 08/25/17 07:41 98.2 F 98 19 116/83 98 08/25/17 04:25 92 General: Conversant, No Apparent Distress HEENT: Atraumatic, Normocephaly Cardiac: Other (irregularly irregular) Lungs: Normal Breath Sounds Neuro: Alert and responsive Abdomen: Soft Skin: No rashes noted on visualized skin Musculoskeletal: No Chest Wall Tenderness Extremities: No Edema, Normal Pulses Results 08/24/17 04:18 08/24/17 04:18 Lab Results 08/25/17 05:20 APTT 71.0 H Active Medications Hydrocodone Bitart/Acetaminophen ([place] 5-325 Mg) 1 tab PO Q6HR PRN PRN Reason: Moderate Pain Stop: 02/22/18 00:01 Last Admin: 08/23/17 01:35 Dose: 1 tab Aspirin (Aspirin Ec) 81 mg PO DAILY [facility] Stop: 02/23/18 09:01 Last Admin: 08/25/17 07:18 Dose: 81 mg Heparin Sodium (Porcine) (Heparin) 8,300 unit 70 unit/kg (8300 unit) IVP Q6HR PRN PRN Reason: SEE COMMENTS Stop: 02/22/18 15:11 Heparin Sodium (Porcine) (Heparin) 4,200 unit 35 unit/kg (4200 unit) IVP Q6H PRN PRN Reason: SEE COMMENTS Stop: 02/22/18 15:11 Heparin Sodium/Dextrose (Heparin 25,000 Unit/500 Ml D5w) 25,000 unit in 500 mls @ 33.58 mls/hr IVC .[id number] ANDREAS; 14 UNIT/KG/HR PRN Reason: Protocol Stop: 02/21/18 19:01 Last Titration: 08/25/17 07:16 Dose: 13.99 unit/kg/hr, 33.58 mls/hr Metoprolol Succinate (Toprol Xl) 25 mg PO DAILY [facility] Stop: 02/25/18 09:01 Naloxone HCl (Narcan) 0.4 mg IVP Q2MIN PRN PRN Reason: SEE COMMENTS Stop: 02/22/18 00:01 - Imaging and Cardiology Echo: report reviewed Other Results: 12 hour tele: avg HR=98 afib. - EKG Interpretation EKG results cardiology: personally reviewed Consult Discharge Plan - Plan Referrals: Nalini Romero MD [Primary Care Provider] - 08/30/17 12:00 pm (8:30 appointment for 08/30 cancelled)
--- NOTE | 2017-08-25 15:38 | Internal Med Progress Note ---
Date of Encounter: 08/25/17 Time of Encounter: 15:36 - Assessment and plan (1) Atrial fibrillation with RVR Current Visit: Yes Status: Acute Assessment and plan: New onset A. fib and found be in A. fib with RVR. Troponin initially midly elevated at 0.05 then 2 negative troponins. Most likely a fib 2/2 to systolic CHF. Patient is still in A. fib with RVR. Patient was initially placed on a Cardizem drip and then switched to amiodarone drip. Cardiology is following and appreciate recommendations. Echo 08/22/17 showed an EF of 20-25%, Severe global left ventricular systolic dysfunction, severely dilated L atrium. Plan: - metoprolol 25mg, per cardiology - Heparin drip - possible LHC on Saturday - diet: cardiac diet (2) Systolic congestive heart failure Current Visit: Yes Status: Acute Assessment and plan: Echo 08/22/17 showed EF 20-25% with severe systolic dysfunction of LV - will consider adding ASHISH after BP increase - plan for [facility], possibly saturday Qualifiers: Heart failure chronicity: unspecified Qualified Code(s): I50.20 - Unspecified systolic (congestive) heart failure (3) Smoking addiction Current Visit: Yes Status: Acute (4) DVT prophylaxis Current Visit: Yes Status: Acute Assessment and plan: heparin drip - Time Spent With Patient 25 - 35 minutes - Subjective Interval history: 62-year-old male who presented to the ED after echo showing 20-25% EF patient is found to be in A. fib with RVR and acute systolic congestive heart failure. he waas admitted on 08/22 for SOB, atrail fib with RVR Patient is doing better, he says shortness of breath improved. He denies any palpitation no chest pressure. Heart rate is around 100, continue on heparin drip. He tolerated the beta Vincent. On room air 98% no leg swellings. The plan is to have cardiac cath on Saturday Patient states that he drinks. 2-3 beers daily, never had a withdrawal symptoms. - Constitutional Vitals: Temp Pulse Resp BP Pulse Ox 98.4 F 95 18 101/83 99 08/25/17 12:10 08/25/17 12:10 08/25/17 12:10 08/25/17 12:10 08/25/17 12:10 General appearance: Present: A&O X 3, pleasant, no acute distress, answers questions appropriately Exam: CONSTITUTIONAL: patient appears as an age appropriate male in no acute distress. EYES Clear sclerae, bilateral pupils are equal, reactive to light. EMOI. RESPIRATORY: No accessory muscle use, bilateral clear to auscultation, no wheezing, no crackles/rales. CARDIOVASCULAR: Irregular irregular heart rate, normal S1 and S2, no murmurs GASTROINTESTINAL: bowel sounds present, soft, no tenderness. MUSCULOSKELETAL: Joints in normal range of motion, no clubbing, no edema, no cyanosis. Bilateral peripheral pulses 2+. NEUROLOGIC: CN II to XII are grossly intact, no focal neurological deficit. Internal Medicine: Result - Labs CBC & Chem 7: 08/24/17 04:18 08/24/17 04:18 - ABG Interpretation ABG results: PT/INR, D-dimer PT 12.2 Seconds (9.4-12.1) H 08/22/17 18:58 D-Dimer 1223 ng/mLFEU (0-500) H 08/22/17 16:55 Consult Discharge Plan - Plan Referrals: Nalini Romero MD [Primary Care Provider] - 08/30/17 12:00 pm (8:30 appointment for 08/30 cancelled)
[2017-08-26 05:59] LABS: Basophils # 0.1 K/mcL (0.0-0.2); Basophils % 0.8 %; Eosinophils # 0.2 K/mcL (0.0-0.6); Eosinophils % 3.7 %; Hematocrit 40.7 % (37.5-50.1); Hemoglobin 13.5 g/dL (12.9-16.9); Immature Granulocytes % 0.5 % (0-4); Lymphocytes # 1.2 K/mcL (0.6-4.6); Lymphocytes % 18.6 %; Mean Corpuscular HGB Conc 33.2 g/dL (31.6-35.5); Mean Corpuscular Hemoglobin 32.5 pg (28.0-33.3); Mean Corpuscular Volume 97.8 fL (83.0-100.0); Mean Platelet Volume 11.7 fL (9.4-12.4); Monocytes # 0.8 K/mcL (0.0-1.3); Monocytes % 12.8 %; Platelet Count 155 K/mcL (140-400); Red Blood Count 4.16 M/mcL (4.19-5.50); Red Cell Distribution Width 13.4 % (11.5-14.5); Segmented Neutrophils % 63.6 %
[2017-08-26 06:17] LABS: BUN/Creatinine Ratio 14 (6-26); Blood Urea Nitrogen 10 mg/dL (8-23); Calcium 9.2 mg/dL (8.6-10.3); Carbon Dioxide 24 mEq/L (23-29); Chloride 108 mEq/L (98-107); Glucose 103 mg/dL (70-105); Magnesium 1.8 mg/dL (1.6-2.6); Osmolality,Calculated 285 (280-300); Potassium 3.8 mEq/L (3.5-5.1); Sodium 138 mEq/L (136-145); eGFR For Non-African Americans > 60 (> 60)
[2017-08-26] MEDS ORDERED: Heparin 1,000 UNITS/500 mL 500 ML ONE (07:57)
[2017-08-26] MEDS ORDERED: *HR* Heparin 10,000 UNIT/10 ML VIAL ONE (07:57)
[2017-08-26] MEDS ORDERED: ISOVUE-370 200 ML INFUS..BTL IV ONE (07:57)
[2017-08-26] MEDS ORDERED: 0.9 % Sodium Chloride 1,000 ML ONE ×2 (07:58→08:23)
[2017-08-26] MEDS ORDERED: Nitroglycerin 1,000 MCG/10 ML VIAL IV ONE (07:58)
[2017-08-26] MEDS: Aspirin Enteric Coated 81 MG Tablet PO SCH (08:01)
[2017-08-26] MEDS ORDERED: Adenosine 90 MG/30 ML MLS IV ONE (08:06)
[2017-08-26] MEDS ORDERED: *HR* FentaNYL (PF) 100 MCG/2 ML VIAL ONE (08:22)
[2017-08-26] MEDS ORDERED: *HR* Midazolam HCl 2 MG/2 ML VIAL ONE (08:23)
--- NOTE | 2017-08-26 08:23 | Pre-Sedation Evaluation ---
Pre-sedation evaluation - Pre-sedation checklist Date of procedure: 08/26/17 Procedure: LHC Recent Vitals: Last Vital Signs Temp 98.5 F 08/26/17 07:08 Pulse 94 08/26/17 07:08 Resp 18 08/26/17 07:08 BP 122/82 08/26/17 07:08 Pulse Ox 99 08/26/17 07:08 ASA Classification *see protocol: CLASS II-Mild systemic disease Plan of Care: Pt appropriate candidate for procedure/moderate/conscious sedation
[2017-08-26] MEDS ORDERED: Metoprolol XL (24 HR) Succ 25 MG TAB.ER.24H PO SCH (09:00)
[2017-08-26] MEDS ORDERED: *HR* Labetalol 100 MG/20 ML MDV ONE (09:13)
[2017-08-26] MEDS ORDERED: Furosemide 40 MG/4 ML VIAL ONE (09:15)
[2017-08-26] MEDS ORDERED: Nitroglycerin Spray 4.9 GM BOTTLE ONE (09:23)
[2017-08-26] MEDS ORDERED: Metoprolol XL (24 HR) Succ 25 MG TAB.ER.24H PO ONE (12:48)
--- NOTE | 2017-08-26 15:15 | Internal Med Progress Note ---
Date of Encounter: 08/26/17 Time of Encounter: 15:13 - Assessment and plan (1) Atrial fibrillation with RVR Current Visit: Yes Status: Acute Assessment and plan: New onset A. fib and found be in A. fib with RVR. Troponin initially midly elevated at 0.05 then 2 negative troponins. Most likely a fib 2/2 to systolic CHF. Patient is still in A. fib with RVR. Patient was initially placed on a Cardizem drip and then switched to amiodarone drip. Cardiology is following and appreciate recommendations. Echo 08/22/17 showed an EF of 20-25%, Severe global left ventricular systolic dysfunction, severely dilated L atrium. Plan: - metoprolol 50 mg daily per cardiology - Heparin drip - LHC showed 70% stenosis mid LAD - diet: cardiac diet discharge when cardiology is ok (2) Systolic congestive heart failure Current Visit: Yes Status: Acute Assessment and plan: Echo 08/22/17 showed EF 20-25% with severe systolic dysfunction of LV - will consider adding ASHISH after BP increase - LHC, 70% stenosis in mid LAD Qualifiers: Heart failure chronicity: unspecified Qualified Code(s): I50.20 - Unspecified systolic (congestive) heart failure (3) Smoking addiction Current Visit: Yes Status: Acute (4) DVT prophylaxis Current Visit: Yes Status: Acute Assessment and plan: heparin drip - Time Spent With Patient 25 - 35 minutes - Subjective Interval history: 62-year-old male who presented to the ED after echo showing 20-25% EF patient is found to be in A. fib with RVR and acute systolic congestive heart failure. he waas admitted on 08/22 for SOB, atrail fib with RVR Patient is doing better, he says shortness of breath improved. He denies any palpitation no chest pressure. Heart rate is around 100, continue on heparin drip. He tolerated the beta Vincent. On room air 98% no leg swellings. The plan is to have cardiac cath on Saturday Patient states that he drinks. 2-3 beers daily, never had a withdrawal symptoms. Patient is doing well, he tolerated cardiac cast today. Left heart catheterization showed 70% stenosis to the mid LAD, no intervention patient is requesting going home, but will wait for tomorrow life vest - Constitutional Vitals: Temp Pulse Resp BP Pulse Ox 97.7 F 112 18 114/94 98 08/26/17 11:37 08/26/17 11:37 08/26/17 11:37 08/26/17 11:37 08/26/17 11:37 General appearance: Present: A&O X 3, pleasant, no acute distress, answers questions appropriately Exam: CONSTITUTIONAL: patient appears as an age appropriate male in no acute distress. EYES Clear sclerae, bilateral pupils are equal, reactive to light. EMOI. RESPIRATORY: No accessory muscle use, bilateral clear to auscultation, no wheezing, no crackles/rales. CARDIOVASCULAR: Irregular irregular heart rate, normal S1 and S2, no murmurs GASTROINTESTINAL: bowel sounds present, soft, no tenderness. MUSCULOSKELETAL: Joints in normal range of motion, no clubbing, no edema, no cyanosis. Bilateral peripheral pulses 2+. NEUROLOGIC: CN II to XII are grossly intact, no focal neurological deficit. Internal Medicine: Result - Labs CBC & Chem 7: 08/26/17 04:55 08/26/17 04:55 Labs: Short CBC 08/26/17 Range/Units 04:55 WBC 6.3 (4.3-11.1) K/mcL Hgb 13.5 (12.9-16.9) g/dL Hct 40.7 (37.5-50.1) % Plt Count 155 (140-400) K/mcL Neutrophils # 4.0 (1.6-8.9) K/mcL BMP 08/26/17 04:55 Sodium 138 Potassium 3.8 Chloride 108 H Carbon Dioxide 24 BUN 10 Creatinine 0.70 Glucose 103 Calcium 9.2 - ABG Interpretation ABG results: PT/INR, D-dimer PT 12.2 Seconds (9.4-12.1) H 08/22/17 18:58 D-Dimer 1223 ng/mLFEU (0-500) H 08/22/17 16:55 Consult Discharge Plan - Plan Referrals: Nalini Romero MD [Primary Care Provider] - 08/30/17 12:00 pm (8:30 appointment for 08/30 cancelled)
[2017-08-27 01:31] LABS: Basophils # 0.1 K/mcL (0.0-0.2); Eosinophils # 0.2 K/mcL (0.0-0.6); Eosinophils % 2.8 %; Hematocrit 41.3 % (37.5-50.1); Hemoglobin 13.7 g/dL (12.9-16.9); Immature Granulocytes % 0.4 % (0-4); Lymphocytes # 1.2 K/mcL (0.6-4.6); Lymphocytes % 16.6 %; Mean Corpuscular HGB Conc 33.2 g/dL (31.6-35.5); Mean Corpuscular Hemoglobin 32.3 pg (28.0-33.3); Mean Corpuscular Volume 97.4 fL (83.0-100.0); Mean Platelet Volume 11.6 fL (9.4-12.4); Monocytes % 13.8 %; Neutrophils # 4.7 K/mcL (1.6-8.9); Platelet Count 138 K/mcL (140-400); Red Blood Count 4.24 M/mcL (4.19-5.50); Red Cell Distribution Width 13.6 % (11.5-14.5); Segmented Neutrophils % 65.4 %
[2017-08-27 02:23] LABS: BUN/Creatinine Ratio 19 (6-26); Blood Urea Nitrogen 14 mg/dL (8-23); Calcium 9.2 mg/dL (8.6-10.3); Carbon Dioxide 24 mEq/L (23-29); Chloride 106 mEq/L (98-107); Glucose 103 mg/dL (70-105); Osmolality,Calculated 289 (280-300); Potassium 3.6 mEq/L (3.5-5.1); Sodium 139 mEq/L (136-145); eGFR For Non-African Americans > 60 (> 60)
[2017-08-27] MEDS: Heparin 25,000 UNIT/500 ML D5W 25,000 UNIT/500 ML BAG IVC SCH (05:37)
[2017-08-27] MEDS: Aspirin Enteric Coated 81 MG Tablet PO SCH (07:40)
[2017-08-27] MEDS ORDERED: Metoprolol XL (24 HR) Succ 25 MG TAB.ER.24H PO SCH (09:00)
[2017-08-27] MEDS ORDERED: Potassium Chloride 20 MEQ, Lidocaine 1% 2 ML in D5% in Water 250 ML IVPB ONE (10:49)
--- NOTE | 2017-08-27 11:43 | Event Note ---
Date of Encounter: 08/27/17 Time of Encounter: 11:39 - Cardiology Event Note PLan for YUMIKO/DCCV today for atrial fibrillation. Currently on heparin drip for anticoagulation. [id number] score now 2 (CHF/cardiomyopathy, and vascular disease). Continue heparin drip for now. Maya check sent for eliquis 5mg BID. Noted to be $135/month. Patient states is affordable. Patient deneis bleeding, blood loss, or falls. Risk versus benefits of YUMIKO/DCCV explained to patient and family. States understanding and agreeable to proceed. Further recommendations pending YUMIKO/DCCV.
[2017-08-27] MEDS ORDERED: Lidocaine Viscous Oral Soln 15 ML SOLUTION MM PRN (12:59)
[2017-08-27] MEDS ORDERED: Tetracaine/Benzocaine/Butamben 1 SPRAY AEROSOL MM PRN (13:05)
[2017-08-27] MEDS ORDERED: 0.9 % Sodium Chloride 500 ML IVC ONE (13:05)
--- NOTE | 2017-08-27 13:16 | Internal Med Progress Note ---
Date of Encounter: 08/27/17 - Assessment and plan (1) Atrial fibrillation with RVR Current Visit: Yes Status: Acute Assessment and plan: New onset A. Fib with RVR. Troponin initially midly elevated at 0.05 then 2 negative troponins. Afib most likely due to CHF Patient was initially placed on a Cardizem drip and then switched to amiodarone drip. Cardiology is following and appreciate recommendations. Echo 08/22/17 showed an EF of 20-25%, Severe global left ventricular systolic dysfunction, severely dilated L atrium. LHC on 08/26/17 showed 70% stenosis mid LAD Plan: - YUMIKO/DCCV today for afib - continue Heparin drip - metoprolol 50 mg daily per cardiology - [id number] score now 2 with CHF, cardiomyopathy, and vascular disease - diet: NPO at this time (2) Systolic congestive heart failure Current Visit: Yes Status: Acute Assessment and plan: Echo 08/22/17 showed EF 20-25% with severe systolic dysfunction of LV - will consider adding ASHISH after BP increase - LHC, 70% stenosis in mid LAD Qualifiers: Heart failure chronicity: unspecified Qualified Code(s): I50.20 - Unspecified systolic (congestive) heart failure (3) Smoking addiction Current Visit: Yes Status: Acute (4) DVT prophylaxis Current Visit: Yes Status: Acute Assessment and plan: heparin drip - Constitutional Vitals: Temp Pulse Resp BP Pulse Ox 98.5 F 98 18 132/99 94 08/27/17 11:30 08/27/17 11:30 08/27/17 11:30 08/27/17 11:30 08/27/17 11:30 General appearance: Present: A&O X 3, pleasant, no acute distress, answers questions appropriately Internal Medicine: Result - Labs CBC & Chem 7: 08/27/17 00:40 08/27/17 00:40 Labs: Short CBC 08/27/17 Range/Units 00:40 WBC 7.2 (4.3-11.1) K/mcL Hgb 13.7 (12.9-16.9) g/dL Hct 41.3 (37.5-50.1) % Plt Count 138 L (140-400) K/mcL Neutrophils # 4.7 (1.6-8.9) K/mcL BMP 08/27/17 00:40 Sodium 139 Potassium 3.6 Chloride 106 Carbon Dioxide 24 BUN 14 Creatinine 0.72 Glucose 103 Calcium 9.2 - ABG Interpretation ABG results: PT/INR, D-dimer PT 12.2 Seconds (9.4-12.1) H 08/22/17 18:58 D-Dimer 1223 ng/mLFEU (0-500) H 08/22/17 16:55 Consult Discharge Plan - Plan Referrals: Nalini Romero MD [Primary Care Provider] - 08/30/17 12:00 pm (8:30 appointment for 08/30 cancelled)
[2017-08-27] MEDS: *HR* Midazolam HCl 5 MG/5 ML VIAL IVP PRN ×3 (13:40→13:58)
[2017-08-27] MEDS: *HR* FentaNYL (PF) 100 MCG/2 ML VIAL IVP PRN ×3 (13:40→13:58)
--- NOTE | 2017-08-27 14:42 | Discharge Summary ---
<Magdy Beebe - Last Filed: 08/27/17 17:39> - NOTES TO OUTPATIENT PROVIDER Notes to Outpatient Provider: Patient needs follow up with cardiology in 2 weeks. Patient was seen inpatient by Dr. Cummins Cardiology at [place]. Orders not resulted at time of discharge: Pending orders 08/27/17 11:37 EV cyndi guided cardioversion Routine 08/27/17 12:42 EKG [ECG 12 lead ECG] [ECG] Stat 08/27/17 15:00 PTT [Activated Partial Thrombo Time] [COAG] Timed 08/28/17 04:00 Magnesium AM 0400 Potassium AM 0400 Date of Encounter: 08/27/17 Time of Encounter: 16:55 - Discharge Diagnosis (1) Atrial fibrillation with RVR Priority: Primary Status: Acute (2) Systolic congestive heart failure Priority: Primary Status: Acute Qualifiers: Heart failure chronicity: unspecified Qualified Code(s): I50.20 - Unspecified systolic (congestive) heart failure (3) Smoking addiction Priority: Secondary Status: Acute (4) DVT prophylaxis Priority: Primary Status: Acute Hospital course: Mr. Aburto is a 62 year old male with no pertinent past medical history presenting initially with new onset A. fib with RVR and echo showing 20-25% EF with acute systolic CHF. The patient was initially started on a heparin drip and started on beta blockers. Throughout the patient's stay she underwent an echo which showed an EF of 20-25% with severe global left ventricular systolic dysfunction and severely dilated left atrium. He had an LHC on 08/26/17 which showed 70% stenosis to the mid LAD. The patient was started on a heparin drip. He is titrated up to Metroprolol 50 mg daily. Today the patient underwent a CYNDI/DCCV in which cardioversion was successful on the first attempt. The patient was found to have a [id number] score of 2. Plan is to give him his first dose of Eliquis in the hospital, continue outpatient. We will also start the patient on low-dose ASHISH inhibitor. Patient will follow up outpatient with cardiology and with his primary care physician. Patient returned from cardioversion. States he feels well at this time, ready to go home. - Time Spent with Patient Total time spent providing and/or coordinating discharge services: - Discharge Medications Prescriptions: Apixaban [Eliquis] 5 mg PO BID 30 Days #60 tablet Lisinopril [Zestril] 5 mg PO DAILY #30 tablet Metoprolol XL (24 HR) Succ [Toprol XL] 50 mg PO DAILY #30 tab.er.24h Home Medications: Acetylcysteine [Nac] 500 mg PO DAILY 08/22/17 [History] Benzonatate [Tessalon] 1 cap PO TID PRN 08/22/17 [History] Furosemide [Lasix] 20 mg PO DAILY 08/22/17 [History] Apixaban [Eliquis] 5 mg PO BID 30 Days #60 tablet 08/27/17 [Rx] Lisinopril [Zestril] 5 mg PO DAILY #30 tablet 08/27/17 [Rx] Metoprolol XL (24 HR) Succ [Toprol XL] 50 mg PO DAILY #30 tab.er.24h 08/27/17 [ Rx] Allergies/Adverse Reactions: 3 Allergy/AdvReac Type Severity Reaction Status Date / Time No Known Allergies Allergy Verified 08/22/17 16:44 Date of admission: 08/22/17 19:52 Primary care physician: Nalini Romero MD Consults: Cardiology Discharging clinician: Antony Santana Anticipated date of discharge: 08/27/17 - Constitutional Vitals: Temp Pulse Resp BP Pulse Ox 98.2 F 92 12 136/116 99 08/27/17 13:18 08/27/17 13:18 08/27/17 13:18 08/27/17 13:18 08/27/17 13:18 General appearance: Present: A&O X 3, pleasant, no acute distress, answers questions appropriately - Head Head exam: Present: atraumatic, normal inspection, normocephalic - Eye Eye exam: Present: normal appearance, PERRL - Neck Neck exam general surgery: Present: normal inspection - Respiratory Respiratory exam: Present: CTAB. Absent: rales, rhonchi, stridor, wheezes - Cardiovascular Cardiovascular exam: Present: RRR, +S1, +S2 - GI/Abdominal GI/Abdominal exam: Present: normal bowel sounds, soft, no peritoneal signs - Extremities Exam Extremities exam: Present: normal inspection, warm. Absent: tenderness - Back Exam Back exam: Present: normal inspection - Neurological Exam Neurological exam: Present: alert, normal gait, oriented X3, no focal deficits - Psychiatric Psychiatric exam: Present: normal affect, normal mood - Skin Skin exam: Present: intact, normal color, warm - Patient Status Disposition: Home, Self-Care Condition: Good Functional capacity at discharge: independent ambulation Overall status at discharge: patient is back to baseline - Discharge Instructions Instructions: Heart Failure (DC), Atrial Fibrillation (DC), Pacemaker (DC) Follow Up With: Nalini Romero MD [Primary Care Provider] - 08/30/17 12:00 pm (8:30 appointment for 08/30 cancelled) Additional Instructions: 1. Continue taking your home medications that you were taking prior to arrival to the hospital. In addition, take the following medications as prescribed: Metoprolol XL 50 mg once daily; Eliquis 5mg once every 12hours; Lisinopril 5mg once daily 2. If at any time you experience worsening or concerning symptoms such as headache, lightheadedness, nausea, vomiting, abdominal pain, chest pain, shortness of breath, bleeding or any other concerning symptoms return to the nearest emergency department for further evaluation and treatment. 3. Follow-up with your primary care provider in 3-5 days. - Diet and Activity Activity: resume usual activities as tolerated Diet: advance to your usual diet <Antony Santana - Last Filed: 08/27/17 19:03> Orders not resulted at time of discharge: Pending orders 08/27/17 12:42 EKG [ECG 12 lead ECG] [ECG] Stat Date of Encounter: 08/27/17 Hospital course: Mr. Aburto is a 62 year old male - Time Spent with Patient Total time spent providing and/or coordinating discharge services: Date of admission: 08/22/17 19:52 Primary care physician: Nalini Romero MD - Constitutional Vitals: Temp Pulse Resp BP Pulse Ox 98.1 F 97 20 135/98 96 08/27/17 15:23 08/27/17 15:29 08/27/17 15:23 08/27/17 15:23 08/27/17 15:23 - Attending Attestation I examined this patient and my medical decision-making was reviewed with the Resident Physician. I agree with the documented findings, disposition and treatment plan as described except to the extent set forth below. I had a lengthy discussion with both he and the , it appears he has moderate alcohol use at this which may be contributing to the fibrillation. He is stable for discharge discharge today.
[2017-08-27 15:26] VITALS: BP 135/98
[2017-08-27] MEDS ORDERED: Apixaban 5 MG TABLET PO ONE (15:47)
--- NOTE | 2017-08-27 16:08 | Event Note ---
Date of Encounter: 08/27/17 Time of Encounter: 16:06 - Cardiology Event Note Pateint now SR, s/p YUMIKO/DCCV. Recommend starting eliquis 5mg BID uninterrupted. Regarding cardiomyopathy, recommend starting kalee/arb if BP will tolerate. Cardiology will sign off and will follow in outpatient setting. Follow up set.
--- NOTE | 2017-08-28 16:41 | Electrocardiograph Report ---
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
--- NOTE | 2017-08-28 16:46 | Electrocardiograph Report ---
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
--- NOTE | 2017-09-26 11:32 | Invasive Diagnostic Lab Proc ---
Name: Jong Aburto Date of Study: 08/26/2017 Date: 1955 Ht: 74.0in Medical Record#: [id number] Age: 62 Wt: 258.38lb Gender: Male BSA: 2.42 Order #: [id number] BMI: 33.16 Physicians Procedure Physician: Jesus Tineo MD Referring MD: Referring MD: Staff Name Position Time In Amanda Valdivia RT (R) Scrub 08:20 AM Aminata Fabian RT (R) Monitor 08:32 AM Jeet Cedillo RN Powertrain Engineer 08:20 AM Indications Indication Cardiomyopathy Procedures Performed Procedure L HRT ARTERY/VENTRICLE ANGIO IV Doppler BLD Flow 1st Vessel Pre-Procedure Checklist Informed consent is complete signed and on chart. H&P is on chart. ID band is on and ID verified with patient. Patient NPO for procedure The procedure was described for the patient and questions were answered. Blood Pressure: 122/82 ECG is on chart. Plan of Care Patient will tolerate the procedure without complications. Adequate level of comfort will be maintained. Hemodynamics will remain stable Patient will recover from procedure without complications. Respiratory function will be maintained. Cardiac rhythm will remain stable. Patient temperature will be maintained. Patient and/or family have verbalized understanding of the procedure. Patient Education Chief Complaint/Reason for Test: Cardiac Cath Developmental Category: Adult (18-64 years) Developmentally Appropriate for Age: Yes Learning Barriers: None Education Needs: Procedure Education Method: Verbal Information Taught: Cardiac Cath Educational Evaluation: Able to repeat information Intravenous Access Time IV Size Location DC'd Fluid/Drip Rate Units RN 20g 1 1/4" Patent On Arrival Rt Forearm 18g 1 1/4" Patent On Arrival Lt Antecubital Allergies No Known Allergies Vital Signs Time BP (mmHg) HR (bpm) O2 Sat. RR (bpm) LOC 08:41 AM / % 5 = Fully awake and oriented or at pre-proc level 08:41 AM / % 4 = Oriented but drowsy 08:56 AM / % 5 = Fully awake and oriented or at pre-proc level 09:12 AM / % 5 = Fully awake and oriented or at pre-proc level 08:46 AM 124 / 102 94 98 % 18 08:51 AM 115 / 85 117 95 % 13 08:56 AM 127 / 104 95 96 % 26 09:01 AM 133 / 95 112 97 % 16 09:06 AM 127 / 99 109 96 % 13 09:11 AM 133 / 100 139 97 % 16 09:16 AM 125 / 92 116 95 % 14 09:21 AM 116 / 71 105 96 % 23 08:26 AM 133 / 105 86 94 % 13 08:31 AM 111 / 99 99 98 % 33 08:36 AM 124 / 93 115 97 % 24 08:41 AM 120 / 88 99 98 % 4 Procedural Medications Time Medication Dose Units Method Given By 08:32 AM Versed 1 mg Intravenous Jeet Cedillo RN 08:32 AM Fentanyl 50 mcg Intravenous Jeet Cedillo RN 08:32 AM Oxygen 2 L/min nasal cannula Jeet Cedillo RN 08:40 AM Lidocaine 2% 10 ml Subcutaneous Jesus Tineo MD 08:52 AM Heparin 4000 units Intravenous Jeet Cedillo RN 09:00 AM Adenosine 984 ml/hr Intravenous Jesus Tineo MD 09:02 AM Adenosine 984 ml/hr Intravenous Jesus Tineo MD 09:04 AM Heparin 1000 units Intravenous Jeet Cedillo RN 09:06 AM Adenosine 984 ml/hr Intravenous Jesus Tineo MD 09:13 AM Labetolol 10 mg Intravenous Jeet Cedillo RN 09:16 AM Lasix 20 mg Intravenous Jeet Cedillo RN 09:25 AM Nitroglycerin 0.04 mcg Orally Jeet Cedillo RN ASA Classification: CLASS II- Mild systemic disease (i.e. well-controlled diabetes, hypertension, asthma, cigarette smoking) Iris Score Preprocedure Postprocedure Activity 2- Moves 4 extremities sustained head lift Activity 2- Moves 4 extremities sustained head lift Circulation 2- SBP +/= 20 points of pre-anesthetic level Circulation 2- SBP +/= 20 points of pre-anesthetic level Consciousness 2- Awake and alert oriented x 3 Consciousness 2- Awake and alert oriented x 3 O2 Saturation 2- Able to maintain O2 satruation of 92% on room air O2 Saturation 2- Able to maintain O2 satruation of 92% on room air Respiratory 2- Able to deep breathe and cough well Respiratory 2- Able to deep breathe and cough well Total Score 10 Total Score 10 Contrast Agent: Isovue Diagnostic Contrast: 113 ml Total Contrast: 113 ml Fluoro Dose: 894 mGy Activated Clotting Time Time Seconds to Clot 09:13 AM 190 Procedure Log Time Note Enter By 08:20 AM Amanda Valdivia RT (R) Position: Scrub Time in: 08:20 [email or web address] 08:20 AM Aminata Fabian (R) Position: Monitor Time in: 08:20 [email or web address] 08:20 AM Pt arrived to outside laborer 1 at 08:20 [email or web address] 08:20 AM Jeet Cedillo RN Position: Powertrain Engineer Time in: 08:20 [email or web address] 08:20 AM Physician arrived 08:20 [email or web address] 08:21 AM Case Start 08:21 AM Meet and greet completed 08:21 AM Sign in performed according to hospital policy. [email or web address] 08:22 AM Procedure start 08:22 dspell 08:25 AM CathStat 08:25 AM Vitals capture started with the following parameters, Patient=Adult, Interval=5 min, Initial Mrakhvto=936 mmHg, Deflation Rate=3 mmHg, Cuff placed on Right Arm 08:26 AM HR=86 bpm, YJTR=418/105 mmhg, SpO2=94.0 %, Resp=13 B/min, Comment=A Fib 08:28 AM Recorded ECG: VF=070 Condition=Condition 1 08:30 AM Hair removed from procedure site in holding area using clippers. Bilateral groin prepped with Chloraprep by Aminata Fabian RT (R), then patient was draped. Skin intact. 08:31 AM HR=99 bpm, GJGR=837/99 mmhg, SpO2=98.0 %, Resp=33 B/min, Comment=A Fib 08:32 AM Time: 08:32 Versed 1 mg Intravenous Given by Jeet Cedillo RN [email or web address] 08:32 AM Time: 08:32 Fentanyl 50 mcg Intravenous Given by Jeet Cedillo RN [email or web address] 08:32 AM Time: 08:32 Oxygen on at 2 L/min per nasal cannula by Jeet Cedillo RN [email or web address] 08:35 AM Patient charges- Angio tray pack, Navilyst 3mm J, Pulse Oximetry and ACIST tubing and transducer 08:35 AM IV Supplies used: J loop Angio Cath. ell 08:35 AM Case Delayed No ell 08:36 AM ASA Class CLASS II- Mild systemic disease (i.e. well-controlled diabetes, hypertension, asthma, cigarette smoking) dspell 08:36 AM AJ=580 bpm, EAYH=730/93 mmhg, SpO2=97.0 %, Resp=24 B/min, Comment=A Fib 08:39 AM Time out performed according to hospital policy 08:40 AM Time: 08:40 10 ml Lidocaine 2% to right groin Subcutaneous Given by Jesus Tineo MD 08:41 AM Time: 08:41 Patient comfortable and pain free: Yes 08:41 AM Time: 08:41LOC: 5 = Fully awake and oriented or at pre-proc level dsp 08:41 AM Clinical Presentation: Unstable angina dspell 08:41 AM HR=99 bpm, OCHD=415/88 mmhg, SpO2=98.0 %, Resp=4 B/min, Comment=A Fib 08:42 AM Micro-Introducer Kit utilized for sheath placement 08:42 AM Access obtained by percutaneous puncture. 6Fr 10cm Terumo [place] sheath placed in right Femoral artery. [id number] ell 08:44 AM Recorded Pressure: Ao, HR=95, Condition=Condition 1 (Aorta) Ao 132/105/117 08:44 AM 5Fr FR 4 catheter inserted over the wire [facility] 08:44 AM 0.035 145cm Navilyst 3mmJ wire [id number] ell 08:44 AM RCA angiography performed in multiple views. ell 08:45 AM Catheter removed dspell 08:45 AM Coronary Dominance: right dspell 08:45 AM 5Fr FL 4 catheter inserted over the wire [facility] dspell 08:46 AM HR=94 bpm, BPKS=182/102 mmhg, SpO2=98.0 %, Resp=18 B/min, Comment=A Fib 08:46 AM LCA angiography performed in multiple views. ell 08:47 AM Catheter removed 08:49 AM 5Fr Pigtail catheter inserted over the wire [facility] ell 08:49 AM Catheter selectively placed in left ventricle dspell 08:49 AM Pressure channel 1 zeroed. 08:50 AM Recorded Pressure: LV, WQ=992, Condition=Condition 1 (Left Ventricle) LV 110/44/64 08:50 AM Recorded Pressure: LV, Ao, OW=695, Condition=Condition 1 (Left Ventricle) LV 105/32/58, (Aorta) Ao 111/87/98 08:51 AM Catheter removed dspell 08:51 AM BY=842 bpm, CRHV=821/85 mmhg, SpO2=95.0 %, Resp=13 B/min, Comment=A Fib 08:51 AM Lesion found in Mid LAD. Pre Stenosis: 70 Pre DELL Flow: 3: Complete and Brisk Flow/Perfusion dspell 08:52 AM Time: 08:52 Heparin 4000 units Intravenous Given by Jeet Cedillo RN [facility] 08:53 AM PCI Status Urgent [email or web address] 08:53 AM PCI lesion in Mid LAD. [email or web address] 08:53 AM 6Fr XB LAD 3.5 Cordis guide catheter was used to cannulate the PCI vessel successfully. reused? No dspell 08:53 AM Inflation device was opened. [email or web address] 08:53 AM .014 [employer] [place] 182cm guide wire across target lesion- successful. reused? No [email or web address] 08:55 AM Recorded Pressure: Ao, GF=477, Condition=Condition 1 (Aorta) Ao 122/95/107 08:56 AM Time: 08:41 Patient comfortable and pain free: Yes dspell 08:56 AM Time: 08:41LOC: 4 = Oriented but drowsy dspell 08:56 AM HR=95 bpm, PFMT=412/104 mmhg, SpO2=96.0 %, Resp=26 B/min, Comment=A Fib 09:00 AM Asist FFR Catheter advanced to target lesion. dspell 09:00 AM Time: 09:00 Adenosine 984 ml/hr administered Intravenous by Jesus Tineo MD [facility] 09:01 AM DA=590 bpm, LGHE=724/95 mmhg, SpO2=97.0 %, Resp=16 B/min, Comment=A Fib 09:02 AM Adenosine off dspell 09:02 AM Time: 09:02 Adenosine 984 ml/hr x 2 min administered Intravenous by [facility] 09:04 AM adenosine off [facility] 09:05 AM Time: 09:04 Heparin 1000 units Intravenous Given by Jeet Cedillo RN [facility] 09:06 AM Time: 09:06 Adenosine 984 ml/hr x 2 min administered Intravenous by Jesus Tineo MD [facility] 09:06 AM UW=117 bpm, VZEI=637/99 mmhg, SpO2=96.0 %, Resp=13 B/min, Comment=A Fib 09:08 AM adenosine off dspell 09:08 AM FFR Measurement: 0.85 dspell 09:08 AM Flow Wire/Catheter removed intact dspell 09:09 AM Guide catheter removed intact. dspell 09:10 AM Bolus angiogram of right Femoral complete: 4 ml/sec for a total of 7mls dspell 09:10 AM Procedure completed at 09:10 dspell 09:10 AM Did you address DELL flow and Dominance? Yes dspell 09:11 AM AC=146 bpm, YQNE=752/100 mmhg, SpO2=97.0 %, Resp=16 B/min, Comment=A Fib 09:11 AM Sign out completed: Radiation Dose 894.5 mGy Fluoro Time: 5.4 Isovue 370 - 200ml contrast 113 ml given by Jesus Tineo MD. Complications: NoneCardiac Rehab Consult needed: NoConfirmed administered medications: Yes dspell 09:12 AM Time: 08:56 Patient comfortable and pain free: Yes dspell 09:12 AM Time: 08:56LOC: 5 = Fully awake and oriented or at pre-proc level dspell 09:12 AM Isovue 370 - 200ml,1 Bottle(s) used. dspell 09:12 AM Estimated Blood Loss: minimal dspell 09:12 AM Post ECG Atrial Fibrillation dspell 09:12 AM Post Blood Pressure 133/100 dspell 09:13 AM Time: 09:13 Labetolol 10 mg Intravenous Given by Jeet Cedillo RN dspell 09:13 AM At 09:13 the ACT was 190 seconds. dspell 09:14 AM Lesion found in Mid RCA. Pre Stenosis: 25 Pre DELL Flow: 3: Complete and Brisk Flow/Perfusion dspell 09:15 AM Arterial sheath pulled, Mynx closure device used and was Successful S/N [id number]. dspell 09:15 AM Information taught Cardiac Cath, IVUS/Flowire, and Mynx dspell 09:15 AM Education needs Procedure, Plan of Care, and Responsibilities of Patient in Care dspell 09:15 AM Learning barriers :None dspell 09:15 AM Education Methods Verbal dspell 09:15 AM Education evaluation Able to repeat information dspell:16 AM Time: 09:16 Lasix 20 mg Intravenous Given by Jeet Cedillo RN dspell 09:16 AM MR=039 bpm, HFTQ=195/92 mmhg, SpO2=95.0 %, Resp=14 B/min, Comment=A Fib 09:18 AM Learning barriers :None dspell 09:18 AM Education Methods Verbal dspell 09:18 AM Education evaluation Able to repeat information dspell 09:19 AM Site status No bleeding/hematoma - Rt Groin as reported by Amanda Valdivia RT (R) at 09:19 [email or web address] 09:19 AM Opsite applied dspell 09:21 AM EJ=542 bpm, ZXNT=501/71 mmhg, SpO2=96.0 %, Resp=23 B/min, Comment=A Fib 09:22 AM Family placed in no family available. dspell 09:23 AM Complications: None dsp 09:23 AM Fluoro Time: 5.4 dsp 09:23 AM Isovue 370 - 200ml contrast 113 ml given by Jesus Tineo MD. 09:24 AM Radiation Dose 894.50 mGy [email or web address] 09:25 AM Time: 09:25 Nitroglycerin 0.4 mcg Orally Given by Jeet Cedillo RN [facility] 09:27 AM Time: 09:12LOC: 5 = Fully awake and oriented or at pre-proc level dspell 09:27 AM Time: 09:12 Patient comfortable and pain free: Yes dsp 09:29 AM Report given to Tyler HUYNH Pt taken to 2N Room #7. 09:29 dspell 09:29 AM Patient out of room: 09:29 [facility] Complications Complication None None Hemodynamics Pressures Site Systolic/A Wave Diastolic/V Wave Mean AO 132 105 117 LV 110 44 64 LV 105 32 58 AO 111 87 98 AO 122 95 107 Post Procedure Information Blood Pressure: 133/100 mmHg Rhythm: Atrial Fibrillation Post procedural instructions were given Closure Device Time Device Success/Fail 08/26/2017 9:30:00 AM MynxGrip Successful Site Checks Time Location Status Staff Sheath In? Note 09:19 AM Rt Groin No bleeding/hematoma Amanda Valdivia RT (R) Pulses Time Site Pre-Procedure Post-Procedure Note Bilateral DP & PT 2+ Bilateral radial 1+ Updated by Aminata Fabian RT (R) on 08/26/2017 9:37:14 AM electronically signed on 09/26/2017 11:23:28 AM with status of Final
== END 2017-08-27 18:17 | disposition home or self-care (01) | DRG 286 ==
LOC: EMEROO 16:42 → 2NNU 19:52 → SUATTDRO 19:52 → 2NNU 20:45
PROVIDERS: ADMIT Internal Medicine; ATTEND Hospitalist

== ENCOUNTER 2019-01-13 15:17 | Observation (INO) ==
[2019-01-13 15:48] LABS: Basophils # 0.1 K/mcL (0.0-0.2); Basophils % 1.1 %; Eosinophils # 0.2 K/mcL (0.0-0.6); Eosinophils % 2.2 %; Hematocrit 43.9 % (37.5-50.1); Hemoglobin 14.9 g/dL (12.9-16.9); Immature Granulocytes % 0.2 % (0-4); Lymphocytes # 1.4 K/mcL (0.6-4.6); Lymphocytes % 14.1 %; Mean Corpuscular HGB Conc 33.9 g/dL (31.6-35.5); Mean Corpuscular Hemoglobin 33.5 pg (28.0-33.3); Mean Corpuscular Volume 98.7 fL (83.0-100.0); Mean Platelet Volume 10.2 fL (9.4-12.4); Monocytes # 1.2 K/mcL (0.0-1.3); Monocytes % 11.6 %; Neutrophils # 7.2 K/mcL (1.6-8.9); Platelet Count 185 K/mcL (140-400); Red Blood Count 4.45 M/mcL (4.19-5.50); Red Cell Distribution Width 12.7 % (11.5-14.5); Segmented Neutrophils % 70.8 %; White Blood Count 10.2 K/mcL (4.3-11.1)
[2019-01-13 15:55] LABS: INR 1.2; Prothrombin Time 13.3 Seconds (9.4-12.1)
[2019-01-13 15:57] LABS: Activated Partial Thrombo Time 31.8 Seconds (26.0-36.0)
[2019-01-13 16:09] LABS: BUN/Creatinine Ratio 16 (6-26); Blood Urea Nitrogen 17 mg/dL (8-23); Calcium 9.6 mg/dL (8.6-10.3); Carbon Dioxide 25 mEq/L (23-29); Chloride 105 mEq/L (98-107); Glucose 97 mg/dL (70-105); Magnesium 1.7 mg/dL (1.6-2.6); Osmolality,Calculated 289 (280-300); Sodium 139 mEq/L (136-145); Troponin I < 0.03 ng/mL (< 0.04); eGFR For African Americans > 60 (> 60); eGFR For Non-African Americans > 60 (> 60)
--- NOTE | 2019-01-13 16:11 | Emergency Department Note ---
Disposition Clinical Impression: Ventricular tachycardia, Defibrillator discharge Disposition: Admitted As Inpatient Condition: Good Forms: ED Satisfaction Letter Time of Disposition: 17:36 Arrhythmia/Palpitations HPI - General Chief Complaint: ED Arrhythmia/Palpitations Stated Complaint: defib firing Time Seen by Provider: 01/13/19 15:23 Source: patient Mode of arrival: ambulatory Limitations: no limitations Nursing Notes Reviewed: Yes Vital Signs Reviewed: Yes - History of Present Illness HPI Narrative: Male patient with a past medical history of congestive heart failure and atrial fibrillation who is on eloquence as well as metoprolol had a defibrillator placed in June presents emergency department with reports of the defibrillator firing twice today. He had no prodromal symptoms. States that he otherwise feels well. Reorts that he was putting in alternator in a car today whenever he leaned over and he felt his defibrillator fire. States he has been taking his medication as prescribed. He denies any shortness of breath. Denies any recent illnesses or coughs cold or congestion. He does report that he had some swelling in his lower extremities other day but this is since resolved. He is not on an antidiuretic. - Related Data Home Medications Medication Instructions Recorded Confirmed Aspirin [Lo-Dose Aspirin EC] 81 mg PO DAILY 04/21/18 01/13/19 Metoprolol XL (24 HR) Succ [Toprol 150 mg PO DAILY 01/13/19 01/13/19 Xl] Previous Rx's Medication Instructions Recorded Apixaban [Eliquis] 5 mg PO BID 30 Days #60 tablet 08/27/17 Atorvastatin [Lipitor] 20 mg PO HS #60 tablet 09/21/17 Allergies Allergy/AdvReac Type Severity Reaction Status Date / Time No Known Allergies Allergy Verified 01/13/19 15:45 All systems ED: reviewed and negative except as stated. Review of Systems: As Per HPI Constitutional: Denies: fever, chills, weakness ENT ED: Denies: congestion Cardiovascular: Denies: chest pain, palpitations, dyspnea on exertion, syncope Respiratory: Denies: cough, dyspnea Gastrointestinal: Denies: abdominal pain, nausea, vomiting, diarrhea Neurological: Denies: weakness Past Medical History - Past Medical History Attestation: Yes The following information was validated with the patient. Source: patient Medical history: Reports: atrial fibrillation, CHF Surgical history: Reports: cataract Psychiatric history: Reports: no psych history - Social History Smoking Status: Current every day smoker Smokeless Tobacco Status: No Alcohol use: Reports: heavy Drug use: Reports: none Physical Exam - General Limitations: no limitations General appearance: alert, in no apparent distress - Head Head exam: atraumatic, normocephalic, normal inspection - Eye Eye exam: Present: normal appearance, PERRL, EOMI - ENT ENT exam: normal exam, normal oropharynx, mucous membranes moist - Neck Neck exam: Present: normal inspection, full ROM, trachea midline - Chest Chest inspection: Present: normal inspection, symmetric chest wall rise - Respiratory Respiratory exam: Present: normal lung sounds bilaterally. Absent: respiratory distress, accessory muscle use - Cardiovascular Cardiovascular exam: Present: regular rate, normal rhythm, normal heart sounds - Abdominal Exam Abdominal exam: Present: soft, Non-Tender. Absent: tenderness, distention, guarding, rebound, rigidity, organomegaly, Toribio's sign, Rovsing's sign, tenderness at McBurney's Point - Extremities Exam Extremities exam: Present: normal inspection, full ROM, normal capillary refill. Absent: tenderness, pedal edema, calf tenderness - Back Exam Back exam: Present: normal inspection, full ROM - Neurological Exam Neurological exam: Present: alert, oriented X3 - Psychiatric Psychiatric exam: Present: normal affect, normal mood - Skin Skin exam: Present: warm, dry, intact, normal color, other (Patient very ledezma on exposed skin. States he is outside frequently.). Absent: rash, cyanosis Course Course Narrative: Patient appears well while resting in bed. No acute distress. No prodromal symptoms prior to the defibrillator firing. Chest x-ray shows no signs of congestive heart failure at this time however is was increased per the [employer] interrogation. BNP is elevated but this is the lowest it is been before. We w ill get basic lab workup on patient as well as an EKG. Again patient has no complaints. He is on Elavil is an aspirin. He also takes metoprolol which was recently increased to 150 mg. - Consultations Consultation #1: I spoke with with cardiology. He recommended we keep the patient's potassium above 4 and magnesium above 2 and was recommending admission for further cardiac evaluation and treatment of congestive heart failure. We did discuss adding Magnesium and 40 of potassium right now because his potassium is 4 exactly. He expresses that this would be appropriate. Time: 17:16 Consultation #2: [employer] called. They reported 2 episodes that his defibrillator did fire today. This was for a nonsustained what they think to be ventricular tachycardia however it is tingly so they are unsure if this was SVT or ventricular tachycardia. Rates were between 207 and 214. The time that it fired was at 1040 and then 1043. He is also had several episodes of V. tach that was monitored and no shock was advised the rates were in the 140s. They also reported his Optivol being elevated which was a concern for worsening congestive heart failure. Time: 16:12 Consultation #3: Dr Chauhan accepted Pt in stable condition. We did discuss this with Urgent Care Nurse Practitioner request. Time: 17:34 Vital Signs Temperature 97.6 F 01/13/19 15:18 Pulse Rate 63 01/13/19 15:18 Respiratory Rate 16 01/13/19 15:18 Blood Pressure 160/93 01/13/19 15:18 O2 Sat by Pulse Oximetry 99 01/13/19 15:18 Temperature 97.6 F 01/13/19 15:32 Pulse Rate 77 01/13/19 16:32 Respiratory Rate 18 01/13/19 16:32 Blood Pressure 111/97 01/13/19 16:32 O2 Sat by Pulse Oximetry 99 01/13/19 16:32 Oxygen Delivery Oxygen Delivery Room Air Arrhythmia/Palpitations - Medical Records Medical records reviewed: Yes I reviewed the patient's medical records. - Lab Data Lab results reviewed: Yes I reviewed the patient's lab results. Result diagrams: 01/13/19 15:32 01/13/19 15:32 Lab Results 01/13/19 01/13/19 01/13/19 Range/Units 15:32 15:32 15:32 WBC 10.2 (4.3-11.1) K/mcL RBC 4.45 (4.19-5.50) M/mcL Hgb 14.9 (12.9-16.9) g/dL Hct 43.9 (37.5-50.1) % MCV 98.7 (83.0-100.0) fL MCH 33.5 H (28.0-33.3) pg MCHC 33.9 (31.6-35.5) g/dL RDW 12.7 (11.5-14.5) % Plt Count 185 (140-400) K/mcL MPV 10.2 (9.4-12.4) fL Immature Gran % 0.2 (0-4) % Seg Neutrophils % 70.8 % Lymphocytes % 14.1 % Monocytes % 11.6 % Eosinophils % 2.2 % Basophils % 1.1 % Neutrophils # 7.2 (1.6-8.9) K/mcL Lymphocytes # 1.4 (0.6-4.6) K/mcL Monocytes # 1.2 (0.0-1.3) K/mcL Eosinophils # 0.2 (0.0-0.6) K/mcL Basophils # 0.1 (0.0-0.2) K/mcL PT 13.3 H (9.4-12.1) Seconds INR 1.2 APTT 31.8 (26.0-36.0) Seconds Sodium 139 (136-145) mEq/L Potassium 4.0 (3.5-5.1) mEq/L Chloride 105 (98-107) mEq/L Carbon Dioxide 25 (23-29) mEq/L BUN 17 (8-23) mg/dL Creatinine 1.06 (0.70-1.30) mg/dL Est GFR ( Amer) > 60 (> 60) Est GFR (Non-Af Amer) > 60 (> 60) BUN/Creatinine Ratio 16 (6-26) Glucose 97 (70-105) mg/dL Calculated Osmolality 289 (280-300) Calcium 9.6 (8.6-10.3) mg/dL Magnesium 1.7 (1.6-2.6) mg/dL Troponin I < 0.03 (< 0.04) ng/mL B-Natriuretic Peptide (Less than 100) pg/mL TSH 1.768 (0.340-5.600) mcIU/mL 01/13/19 Range/Units 15:32 WBC (4.3-11.1) K/mcL RBC (4.19-5.50) M/mcL Hgb (12.9-16.9) g/dL Hct (37.5-50.1) % MCV (83.0-100.0) fL MCH (28.0-33.3) pg MCHC (31.6-35.5) g/dL RDW (11.5-14.5) % Plt Count (140-400) K/mcL MPV (9.4-12.4) fL Immature Gran % (0-4) % Seg Neutrophils % % Lymphocytes % % Monocytes % % Eosinophils % % Basophils % % Neutrophils # (1.6-8.9) K/mcL Lymphocytes # (0.6-4.6) K/mcL Monocytes # (0.0-1.3) K/mcL Eosinophils # (0.0-0.6) K/mcL Basophils # (0.0-0.2) K/mcL PT (9.4-12.1) Seconds INR APTT (26.0-36.0) Seconds Sodium (136-145) mEq/L Potassium (3.5-5.1) mEq/L Chloride (98-107) mEq/L Carbon Dioxide (23-29) mEq/L BUN (8-23) mg/dL Creatinine (0.70-1.30) mg/dL Est GFR ( Amer) (> 60) Est GFR (Non-Af Amer) (> 60) BUN/Creatinine Ratio (6-26) Glucose (70-105) mg/dL Calculated Osmolality (280-300) Calcium (8.6-10.3) mg/dL Magnesium (1.6-2.6) mg/dL Troponin I (< 0.04) ng/mL B-Natriuretic Peptide 254 H (Less than 100) pg/mL TSH (0.340-5.600) mcIU/mL - Radiology Data Radiology results reviewed: Yes I reviewed the patient's radiology results. Chest X-Ray 01/13/19 15:23 IMPRESSION: No radiographic evidence of acute cardiopulmonary disease. D/ / Antonio Cancino / Antonio Cancino Interpreting Provider: Antonio Cancino - EKG Data EKG attestation: Yes I reviewed and interpreted this EKG. EKG results narrative: Atrial fibrillation at a rate of 121. [place] is not measured. QRS duration is Y3. QT is 312. QTC is 443. No signs of acute ischemia. No significant change from previous EKG dated 04/21/2018.
[2019-01-13 16:22] LABS: Thyroid Stimulating Hormone 1.768 mcIU/mL (0.340-5.600)
[2019-01-13] MEDS ORDERED: Potassium Chloride Elixir 20 MEQ/15 ML UDC PO ONE (17:14)
--- NOTE | 2019-01-13 17:56 | Emergency Department Note ---
Disposition Clinical Impression: Ventricular tachycardia, Defibrillator discharge Disposition: Admitted As Inpatient Condition: Good Referrals: Nalini Romero MD [Primary Care Provider] - Forms: ED Satisfaction Letter Time of Disposition: 17:56 General Adult HPI - General Chief complaint: ED Arrhythmia/Palpitations Stated complaint: defib firing Time Seen by Provider: 01/13/19 15:23 Source: patient Mode of arrival: ambulatory Limitations: no limitations - History of Present Illness Pain Scale: 0 - Related Data Home Medications Medication Instructions Recorded Confirmed Aspirin [Lo-Dose Aspirin EC] 81 mg PO DAILY 04/21/18 01/13/19 Metoprolol XL (24 HR) Succ [Toprol 150 mg PO DAILY 01/13/19 01/13/19 Xl] Previous Rx's Medication Instructions Recorded Apixaban [Eliquis] 5 mg PO BID 30 Days #60 tablet 08/27/17 Atorvastatin [Lipitor] 20 mg PO HS #60 tablet 09/21/17 Allergies Allergy/AdvReac Type Severity Reaction Status Date / Time No Known Allergies Allergy Verified 01/13/19 15:45 Constitutional: Denies: fever, chills, weakness ENT ED: Denies: congestion Cardiovascular: Denies: chest pain, palpitations, dyspnea on exertion, syncope Respiratory: Denies: cough, dyspnea Gastrointestinal: Denies: abdominal pain, nausea, vomiting, diarrhea Neurological: Denies: weakness Past Medical History - Past Medical History Medical history: Reports: atrial fibrillation, CHF Surgical history: Reports: cataract Psychiatric history: Reports: no psych history - Social History Smoking Status: Current every day smoker Smokeless Tobacco Status: No Alcohol use: Reports: heavy Drug use: Reports: none Physical Exam - General Limitations: no limitations General appearance: alert, in no apparent distress Course Vital Signs Temperature 97.6 F 01/13/19 15:18 Pulse Rate 63 01/13/19 15:18 Respiratory Rate 16 01/13/19 15:18 Blood Pressure 160/93 01/13/19 15:18 O2 Sat by Pulse Oximetry 99 01/13/19 15:18 Temperature 97.6 F 01/13/19 15:32 Pulse Rate 77 01/13/19 16:32 Respiratory Rate 18 01/13/19 16:32 Blood Pressure 111/97 01/13/19 16:32 O2 Sat by Pulse Oximetry 99 01/13/19 16:32 Oxygen Delivery Oxygen Delivery Room Air Medical Decision Making - Lab Data Result diagrams: 01/13/19 15:32 01/13/19 15:32 Lab Results 01/13/19 01/13/19 01/13/19 Range/Units 15:32 15:32 15:32 WBC 10.2 (4.3-11.1) K/mcL RBC 4.45 (4.19-5.50) M/mcL Hgb 14.9 (12.9-16.9) g/dL Hct 43.9 (37.5-50.1) % MCV 98.7 (83.0-100.0) fL MCH 33.5 H (28.0-33.3) pg MCHC 33.9 (31.6-35.5) g/dL RDW 12.7 (11.5-14.5) % Plt Count 185 (140-400) K/mcL MPV 10.2 (9.4-12.4) fL Immature Gran % 0.2 (0-4) % Seg Neutrophils % 70.8 % Lymphocytes % 14.1 % Monocytes % 11.6 % Eosinophils % 2.2 % Basophils % 1.1 % Neutrophils # 7.2 (1.6-8.9) K/mcL Lymphocytes # 1.4 (0.6-4.6) K/mcL Monocytes # 1.2 (0.0-1.3) K/mcL Eosinophils # 0.2 (0.0-0.6) K/mcL Basophils # 0.1 (0.0-0.2) K/mcL PT 13.3 H (9.4-12.1) Seconds INR 1.2 APTT 31.8 (26.0-36.0) Seconds Sodium 139 (136-145) mEq/L Potassium 4.0 (3.5-5.1) mEq/L Chloride 105 (98-107) mEq/L Carbon Dioxide 25 (23-29) mEq/L BUN 17 (8-23) mg/dL Creatinine 1.06 (0.70-1.30) mg/dL Est GFR ( Amer) > 60 (> 60) Est GFR (Non-Af Amer) > 60 (> 60) BUN/Creatinine Ratio 16 (6-26) Glucose 97 (70-105) mg/dL Calculated Osmolality 289 (280-300) Calcium 9.6 (8.6-10.3) mg/dL Magnesium 1.7 (1.6-2.6) mg/dL Troponin I < 0.03 (< 0.04) ng/mL B-Natriuretic Peptide (Less than 100) pg/mL TSH 1.768 (0.340-5.600) mcIU/mL 01/13/19 Range/Units 15:32 WBC (4.3-11.1) K/mcL RBC (4.19-5.50) M/mcL Hgb (12.9-16.9) g/dL Hct (37.5-50.1) % MCV (83.0-100.0) fL MCH (28.0-33.3) pg MCHC (31.6-35.5) g/dL RDW (11.5-14.5) % Plt Count (140-400) K/mcL MPV (9.4-12.4) fL Immature Gran % (0-4) % Seg Neutrophils % % Lymphocytes % % Monocytes % % Eosinophils % % Basophils % % Neutrophils # (1.6-8.9) K/mcL Lymphocytes # (0.6-4.6) K/mcL Monocytes # (0.0-1.3) K/mcL Eosinophils # (0.0-0.6) K/mcL Basophils # (0.0-0.2) K/mcL PT (9.4-12.1) Seconds INR APTT (26.0-36.0) Seconds Sodium (136-145) mEq/L Potassium (3.5-5.1) mEq/L Chloride (98-107) mEq/L Carbon Dioxide (23-29) mEq/L BUN (8-23) mg/dL Creatinine (0.70-1.30) mg/dL Est GFR ( Amer) (> 60) Est GFR (Non-Af Amer) (> 60) BUN/Creatinine Ratio (6-26) Glucose (70-105) mg/dL Calculated Osmolality (280-300) Calcium (8.6-10.3) mg/dL Magnesium (1.6-2.6) mg/dL Troponin I (< 0.04) ng/mL B-Natriuretic Peptide 254 H (Less than 100) pg/mL TSH (0.340-5.600) mcIU/mL Attestation Statement - Attestation Attestation: I reviewed the residents documentation and agree with the residents assessment and plan of care. I have personally had face to face time with the patient. (Brief History, Brief Exam, and MDM) I personally supervised and was present for the burton/critical portions of the following procedures completed by the resident: EKG 63 year old male presents to the ED with complaints of his defibrillator firing and it appears that per the meditronic report he has had 6 episodes of VTAch/fib and we have evaluated his CHG with his bnp is only 245. CXR appears mor clear than from previous. discusssed case with cardiology and they will see him in consult and [facility]. Currently stable without recurrent runs
[2019-01-13] MEDS ORDERED: Acetaminophen 325 MG TABLET PO PRN (18:12)
[2019-01-13] MEDS ORDERED: Ondansetron ODT 4 MG TAB.RAPDIS SL PRN (18:12)
[2019-01-13] MEDS ORDERED: Naloxone 0.4 MG/ML INJ IVP PRN (18:12)
[2019-01-13 18:57] LABS: Basophils # 0.1 K/mcL (0.0-0.2); Basophils % 1.1 %; Eosinophils # 0.3 K/mcL (0.0-0.6); Eosinophils % 3.2 %; Hematocrit 44.7 % (37.5-50.1); Immature Granulocytes % 0.4 % (0-4); Lymphocytes # 1.7 K/mcL (0.6-4.6); Lymphocytes % 17.8 %; Mean Corpuscular HGB Conc 33.6 g/dL (31.6-35.5); Mean Corpuscular Hemoglobin 32.8 pg (28.0-33.3); Mean Corpuscular Volume 97.8 fL (83.0-100.0); Mean Platelet Volume 10.2 fL (9.4-12.4); Monocytes # 0.9 K/mcL (0.0-1.3); Neutrophils # 6.4 K/mcL (1.6-8.9); Platelet Count 176 K/mcL (140-400); Red Blood Count 4.57 M/mcL (4.19-5.50); Red Cell Distribution Width 12.7 % (11.5-14.5); Segmented Neutrophils % 67.5 %; White Blood Count 9.4 K/mcL (4.3-11.1)
--- NOTE | 2019-01-13 19:25 | Internal Med History&Physical ---
Date of Encounter: 01/13/19 Time of Encounter: 19:18 Internal Medicine - H&P: HPI Chief complaint: Defibrilator Shock Admitted From: Home Plans for Post Hospital Care: Home History of present illness: Mr. Aburto is a 63 year old male with hx of HFrEF EF of 25-30% s/p defibrillator placement, ischemic and non-ischemic cardiomyopathy, and atrial fibrillation on apixaban presents with complaints of being shocked by his defibrillator. Patient says that he was working on his car today when he felt a shock from his defibri llator going off. Sat down to rest and felt another shock 5 minutes later. Says that this has happened multiple times (5-7) over the last two weeks. Denies chest pain currently or over the last two weeks. Hx of heart failure but dyspnea no worse than usual. Taking all his medications as prescribed. In the ED, VSS. Case was discussed with of cardiology, who recommended defib interrogation, keeping Mg >2 and K >4, and admission for further workup. Past Med Surg Social Fam HX - Past Medical History Medical history: atrial fibrillation, CHF Additional medical history: VENOUS INSUFFICIENCY. VERICOSE VEINS Psychiatric history: no psych history - Past Surgical History Surgical History: cataract Additional surgical history: vein stripping bilateral LE. VASECTOMY - Social History Smoking Status: Current every day smoker Smokeless Tobacco Status: No Alcohol use: heavy Drug use: none - Family History Father Hx Family Cardiac Disorders: Yes Internal Medicine - H&P: Meds Apixaban [Eliquis] 5 mg PO BID 30 Days #60 tablet 08/27/17 [Rx] Atorvastatin [Lipitor] 20 mg PO HS #60 tablet 09/21/17 [Rx] Aspirin [Lo-Dose Aspirin EC] 81 mg PO DAILY 04/21/18 [History] Metoprolol XL (24 HR) Succ [Toprol Xl] 150 mg PO DAILY 01/13/19 [History] Allergy/AdvReac Type Severity Reaction Status Date / Time No Known Allergies Allergy Verified 01/13/19 15:45 Review of systems: General: Fevers / Chills / Weight loss / Night sweats Eyes: Blurry Vision / Change in Vision HENT: Ear Pain / Ear Drainage / Rhinorrhea / Throat Pain / Lymphadenopathy Cardiovascular: Chest Pain / Palpatations / Orthopnea / TRUJILLO / Weight gain Lungs: Dyspnea / Wheezing / Cough / Sputum production / Pleurisy Abdomen: Abdomen pain / Abdominal distention / Nausea / Vomiting / Diarrhea / Const : Dysuria / Urinary Frequency / Urinary Urgency / Hematuria Extremities: LE edema / Ext pain / Ext erythema Skin: Rashes / Abrasions / Contusions Psych: Hallucinations / Anxiety / Depression Neuro: Weakness / Numbness / Tingling / Facial Droop / Dysphagia - Constitutional Vitals: Temp Pulse Resp BP Pulse Ox 97.6 F 90 20 125/80 100 01/13/19 15:32 01/13/19 18:04 01/13/19 18:04 01/13/19 18:04 01/13/19 18:04 Exam: General: Ill-appearing and in no acute distress HEENT: No erythema of posterior pharynx. No exudates. Lymphatics: No mandibular or cervical lymphadenopathy Cardiovascular: RRR. No murmurs. No chest wall tenderness. Lungs: Clear to auscelltation bilaterally. Regular chest rise. Abdomen: Non-tender. No rebound or gaurding. Nl bowel sounds. Extremities: 1+ edema. 2+ pulses radial and pedal pulses Skin: No rahses, abrasions, or contusions. Nl cap refill. Psych: Nl attention. 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 5/5 strength. Sensation to light touch and pinprick intact. Internal Med - H&P Results - Labs CBC & Chem 7: 01/13/19 18:29 01/13/19 15:32 Labs: Short CBC 01/13/19 01/13/19 Range/Units 15:32 18:29 WBC 10.2 9.4 (4.3-11.1) K/mcL Hgb 14.9 15.0 (12.9-16.9) g/dL Hct 43.9 44.7 (37.5-50.1) % Plt Count 185 176 (140-400) K/mcL Neutrophils # 7.2 6.4 (1.6-8.9) K/mcL BMP 01/13/19 15:32 Sodium 139 Potassium 4.0 Chloride 105 Carbon Dioxide 25 BUN 17 Creatinine 1.06 Glucose 97 Calcium 9.6 Cardiac Enzymes 01/13/19 Range/Units 15:32 Troponin I < 0.03 (< 0.04) ng/mL - Impressions ITS Impressions Chest X-Ray 01/13/19 15:23 IMPRESSION: No radiographic evidence of acute cardiopulmonary disease. D/ / Antonio Cancino / Antonio Cancino Interpreting Provider: Antonio Cancino - Assessment and Plan (1) Defibrillator discharge Current Visit: Yes Status: Acute Assessment and plan: Patient with hx of HFrEF EF of 25-30% s/p defibrillator placement, ischemic and non-ischemic cardiomyopathy, and atrial fibrillation on apixaban presents after his defibrillator shocked him multiple times in the setting of stable vitals on arrival, completely unremarkable physical exam, negative initial troponin, normal electrolytes, BNP below his previous, and chest x-ray without evidence of pulmonary edema. -Unclear why patient's defibrillator is shocking him -[employer] report per ED note: [employer] called. They reported 2 episodes that his defibrillator did fire today. This was for a nonsustained what they think to be ventricular tachycardia however it is tingly so they are unsure if this was SVT or ventricular tachycardia. Rates were between 207 and 214. The time that it fired was at 1040 and then 1043. He is also had several episodes of V. tach that was monitored and no shock was advised the rates were in the 140s. They also reported his Optivol being elevated which was a concern for worsening congestive heart failure. -Given this, defib may be 2/2 HF exacerbation, however, few clinical signs p ointing toward this. Will hold off on diuresis tonight and follow-up cardiology recommendations for this -No evidence of ischemia currently but will repeat trop tonight -Electrolytes normal and will monitor and replete - Mg >2, K >4 PLAN: - Repeat troponin - Keep Mg >2, K >4 - Telemetry monitoring - Cardiology will see patient in the morning (2) S/P ICD (internal cardiac defibrillator) procedure Current Visit: Yes Status: Acute Assessment and plan: See above (3) Ventricular tachycardia Current Visit: Yes Status: Acute Assessment and plan: See above (4) Atrial fibrillation Current Visit: Yes Status: Acute Assessment and plan: History of A. fib on metoprolol and apixaban outpatient - Continue home medications Qualifiers: Atrial fibrillation type: chronic Qualified Code(s): I48.2 - Chronic atrial fibrillation (5) Cardiomyopathy Current Visit: Yes Status: Acute Assessment and plan: Per past notes, history of single vessel nonocclusive disease without history of stents. Cardiomyopathy causing systolic heart failure thought to be multifactorial in the setting of ischemic disease, alcohol abuse, and tachycardia induced from afib. - Continue patient's aspirin and statin Qualifiers: Cardiomyopathy type: alcoholic Qualified Code(s): I42.6 - Alcoholic cardiomyopathy (6) Systolic congestive heart failure Current Visit: No Status: Acute Assessment and plan: HFrEF EF 25-30% with ICD. Surprisingly not on any diuretics to keep euvolemic outpatient, however, there are some concerns of hypervolemia this admission per [employer] device. - F/u cardio recommendations with regards to diuresis - Unclear why patient is not on an Davonte/ARB - recommend starting this before discharge Qualifiers: Heart failure chronicity: chronic Qualified Code(s): I50.22 - Chronic systolic (congestive) heart failure - Time Spent With Patient Total time spent is greater than 50% in coordination of care (as documented) at patient's floor/unit and/or counseling patient:
[2019-01-13] MEDS: Apixaban 5 MG TABLET PO SCH (21:54)
[2019-01-14 04:45] LABS: BUN/Creatinine Ratio 15 (6-26); Blood Urea Nitrogen 15 mg/dL (8-23); Carbon Dioxide 26 mEq/L (23-29); Chloride 108 mEq/L (98-107); Glucose 99 mg/dL (70-105); Osmolality,Calculated 289 (280-300); Phosphorous 4.1 mg/dL (2.7-4.5); Potassium 4.2 mEq/L (3.5-5.1); Sodium 139 mEq/L (136-145); eGFR For African Americans > 60 (> 60); eGFR For Non-African Americans > 60 (> 60)
[2019-01-14] MEDS: Aspirin Enteric Coated 81 MG Tablet PO SCH (08:31)
[2019-01-14] MEDS: Apixaban 5 MG TABLET PO SCH ×2 (08:31→20:13)
[2019-01-14] MEDS: Metoprolol XL (24 HR) Succ 50 MG TAB.ER.24H PO SCH (08:31)
--- NOTE | 2019-01-14 08:49 | Cardiology Consult Note ---
<Roby Rothman - Last Filed: 01/14/19 13:42> Date of Encounter: 01/14/19 Time of Encounter: 08:55 Assessment and Plan (1) Defibrillator discharge Current Visit: Yes Status: Acute - Patient presented after multiple shocks from his defibrillator - Initial workup was unremarkable; troponin was negative, CXR unremarkable - Per [employer] report in ED note: Patient had 2 episodes of his defibrillator firing on day of presentation; possibly for nonsustained VT; rate 207-214 - Etiology unknown at this time; likely secondary due to his systolic heart failure - Per review of prior records, patient had previously been on Amiodarone, but was taken off of it Plan: - Continuous telemetry, keep Mg >2, K >4 - We will order LFTs; if within normal limits, plan is to restart patient on amiodarone, 200 mg daily - He will need follow up with electrophysiology in the outpatient setting upon discharge (2) Systolic congestive heart failure Current Visit: No Status: Acute - Patient has a known history of heart failure with reduced ejection fraction - TTE on 03/25/18: atrial fibrillation, LVEF 25-30%, severe global LV systolic dysfunction - He is status post ICD placement on 04/21/18 - No signs of volume overload on exam; not in exacerbation Qualifiers: Heart failure chronicity: chronic Qualified Code(s): I50.22 - Chronic systolic (congestive) heart failure (3) Atrial fibrillation Current Visit: Yes Status: Acute - Continue Eliquis Qualifiers: Atrial fibrillation type: chronic Qualified Code(s): I48.2 - Chronic atrial fibrillation (4) Cardiomyopathy Current Visit: No Status: Chronic - Continue home meds Qualifiers: Cardiomyopathy type: unspecified Qualified Code(s): I42.9 - Cardiomyopathy, unspecified Discussion w patient/family: The assessment and plan as outlined above was discussed with the patient and/or family members who expressed understanding and agreement. All questions were answered. Thank you for involving us in the care of your patient. Please call with any questions. History of Present Illness Consult date: 01/14/19 Chief complaint: ICD shocks History of present illness: Mr. Aburto is a 63-year-old male with a PMH of cardiomyopathy, atrial fibrillation, HFrEF s/p defibrillator placement who presented to [facility] ED on 01/13 with the chief complaint of being shocked by his to verbal later. He reported that this occurred while he was working on his car. He sat down to rest experienced another shock approximately 5 minutes later. Reports multiple similar episodes over the last 2 weeks, approximately 5-7 total. Reports compliance with all of his medications. Upon arrival, vital signs were significant for an elevated blood pressure 160/93. All other vitals were within normal limits. Labs demonstrated an layla vated BNP at 254. Troponin was negative 2. TSH was within normal limits. CXR was unremarkable. Previous cardiac workups include a TTE on 03/25/18, which demonstrated atrial fibrillation, LVEF 25-30%, severe global LV systolic dysfunction. He underwent defibrillator placement on 04/21/18. LHC performed on 08/26/17 demonstrated severe 1 vessel disease, with 70% stenosis in the mid LAD. Home medications include Eliquis, ASA, Lipitor, Toprol-XL. During interview today, patient states that he is feeling well. he has no complaints today. He denies having been shocked since admission. Review of [employer] report demonstrates 7 total shocks since last device check, as well as multiple possible episodes of VT and VF. He reports compliance with all of his home medications. Per review of prior records, patient had previously been on Amiodarone, but was subsequently taken off. Our plan is to order LFTs today, and if they are within normal limits, we will restart amiodarone at 200 mg shea ly. He will need follow up with electrophysiology in the outpatient setting. Past Med Surg Social Fam HX - Past Medical History Medical history: atrial fibrillation, CHF Additional medical history: VENOUS INSUFFICIENCY. VERICOSE VEINS Psychiatric history: no psych history - Past Surgical History Surgical History: cataract Additional surgical history: vein stripping bilateral LE. VASECTOMY - Social History Smoking Status: Current every day smoker Packs per day: 1/ Smokeless Tobacco Status: No Alcohol use: heavy Drug use: none - Family History Father Hx Family Cardiac Disorders: Yes Mother Living Status: Hx Family Cardiac Disorders: Yes Hx Family Cancer: Yes Medications and Allergies Apixaban [Eliquis] 5 mg PO BID 30 Days #60 tablet 08/27/17 [Rx] Atorvastatin [Lipitor] 20 mg PO HS #60 tablet 09/21/17 [Rx] Aspirin [Lo-Dose Aspirin EC] 81 mg PO DAILY 04/21/18 [History] Metoprolol XL (24 HR) Succ [Toprol Xl] 150 mg PO DAILY 01/13/19 [History] Allergy/AdvReac Type Severity Reaction Status Date / Time No Known Allergies Allergy Verified 01/13/19 15:45 All Systems Review: The remainder of the systems were reviewed and are negative - Cardiovascular Cardiovascular: no chest pain at rest, no chest pain with exertion, no dyspnea on exertion, no irregular heart rhythm, no radiating jaw, neck or arm pain Physical Examination Vital Signs, Last 4 Hours Temp Pulse Resp BP Pulse Ox 01/14/19 06:38 98.2 F 75 16 126/87 01/14/19 04:51 98.0 F 74 19 134/81 99 General: Conversant, No Apparent Distress HEENT: Atraumatic, Normocephaly, Mucus Membranes Moist Neck: No JVD, Normal carotid pulses Cardiac: Reg Rate and Rhythm, Normal S1 and S2, No Murmur Lungs: Normal Breath Sounds, No Wheeze, Rales, Rhonchi Neuro: Alert and responsive, No focal deficits noted Skin: No rashes noted on visualized skin Musculoskeletal: No Chest Wall Tenderness Extremities: No Clubbing, No Cyanosis, No Edema, Normal Pulses Results 01/13/19 18:29 01/14/19 03:38 Lab Results 01/13/19 01/13/19 01/13/19 15:32 15:32 15:32 WBC 10.2 Hgb 14.9 Hct 43.9 Plt Count 185 INR 1.2 APTT 31.8 Sodium 139 Potassium 4.0 Chloride 105 Carbon Dioxide 25 BUN 17 Creatinine 1.06 Glucose 97 Calcium 9.6 Magnesium 1.7 Troponin I < 0.03 B-Natriuretic Peptide TSH 1.768 01/13/19 01/13/19 01/13/19 15:32 18:29 21:32 WBC 9.4 Hgb 15.0 Hct 44.7 Plt Count 176 INR APTT Sodium Potassium Chloride Carbon Dioxide BUN Creatinine Glucose Calcium Magnesium Troponin I < 0.03 B-Natriuretic Peptide 254 H TSH 01/14/19 03:38 WBC Hgb Hct Plt Count INR APTT Sodium 139 Potassium 4.2 Chloride 108 H Carbon Dioxide 26 BUN 15 Creatinine 1.00 Glucose 99 Calcium 9.0 Magnesium 2.0 Troponin I B-Natriuretic Peptide TSH Consult Discharge Plan - Plan Referrals: Nalini Romero MD [Primary Care Provider] - <Cristi Mcfarland A - Last Filed: 01/14/19 16:07> Date of Encounter: 01/14/19 - Attending Attestation I have personally performed a face to face evaluation on this patient. I have reviewed and agree with the documented findings and care plan as documented by the resident. History and Exam by me shows: 63-year-old pleasant gentleman with history of CAD, chronic afib, non-ischemic cardiomyopathy s/p AICD, essential hypertension, admitted for episodes of AICD discharge. ICD interrogation revealed high ventricular rates possibly A. fib versus nonsustained V. tach for which patient was shocked. High optivol reading was mentioned however patient does not appear to be in clinical heart failure. AAOX3 in NAD at the bedside Hemodynamically stable Cardiopulmonary exam revealed S1, S2, no murmur; clear lungs Rhythm reviewed - A. fib with RVR Impression/plan: 1. AICD firing. Recommend IV Amiodarone loading after checking TSH and LFTs, followed by low maintenance dose of 200mg daily. Follow-up with crepe box tender regarding VT ablation 2. Nonischemic cardiomyopathy. Currently no clinical or radiologic evidence of CHF exacerbation. Continue metoprolol 150 mg daily. Unable to tolerate ASHISH inhibitor in the past because of hypotension 3. Atrial fibrillation with rapid ventricular rate. Amiodarone and metoprolol as above. Continue Eliquis for anticoagulation Critsi Alcantar MD [facility]IN [facility] Assessment and Plan Discussion w patient/family: The assessment and plan as outlined above was discussed with the patient and/or family members who expressed understanding and agreement. All questions were answered. Thank you for involving us in the care of your patient. Please call with any questions. History of Present Illness History of present illness: Mr. Aburto is a 63 year old male All Systems Review: The remainder of the systems were reviewed and are negative Results 01/13/19 18:29 01/14/19 03:38 Lab Results 01/13/19 01/13/19 01/13/19 15:32 15:32 15:32 WBC Hgb Hct Plt Count INR 1.2 APTT 31.8 Sodium 139 Potassium 4.0 Chloride 105 Carbon Dioxide 25 BUN 17 Creatinine 1.06 Glucose 97 Calcium 9.6 Magnesium 1.7 Total Bilirubin AST ALT Alkaline Phosphatase Troponin I < 0.03 B-Natriuretic Peptide 254 H TSH 1.768 01/13/19 01/13/19 01/14/19 18:29 21:32 03:38 WBC 9.4 Hgb 15.0 Hct 44.7 Plt Count 176 INR APTT Sodium 139 Potassium 4.2 Chloride 108 H Carbon Dioxide 26 BUN 15 Creatinine 1.00 Glucose 99 Calcium 9.0 Magnesium 2.0 Total Bilirubin 0.8 AST 19 ALT 18 Alkaline Phosphatase 53 Troponin I < 0.03 B-Natriuretic Peptide TSH
[2019-01-14 14:21] LABS: Alanine Aminotransferase 18 Units/L (7-52); Albumin 3.7 g/dL (3.5-5.7); Albumin/Globulin Ratio 1.6 (1.1-2.2); Alkaline Phosphatase 53 Units/L (34-104); Aspartate Amino Transferase 19 Units/L (13-39); Bilirubin,Direct 0.2 mg/dL (0.0-0.2); Bilirubin,Indirect 0.6 mg/dL (0.0-1.2); Bilirubin,Total 0.8 mg/dL (0.3-1.0); Globulin 2.3 g/dL (2.4-3.5)
[2019-01-14] MEDS ORDERED: Amiodarone Premix 150 MG/100 ML BAG IVPB ONE (14:31)
--- NOTE | 2019-01-14 14:36 | Internal Med Progress Note ---
Hospitalist Progress Note - Encounter Date of Encounter: 01/14/19 Time of Encounter: 14:33 - Subjective Interval History: Patient doing well this morning. He has not had any further episodes of AICD discharges. Denies any dizziness or lightheadedness. No chest pain or palpitations. - Exam Vitals: Temp Pulse Resp BP Pulse Ox 98.2 F 75 16 126/87 99 01/14/19 06:38 01/14/19 06:38 01/14/19 06:38 01/14/19 06:38 01/14/19 04:51 Exam: General: Patient is alert, no acute distress, oriented x 3 Respiratory: Good respiratory effort. Normal breath sounds. No wheezing or crackles. Cardiovascular: Regular rate and rhythm. s1 and s2 normal No clicks, rubs, gallops, or murmurs. No pedal edema Abdomen: Abdomen is soft, nontender. Bowel sounds are present Musculoskeletal: Spontaneously moving all extremities Skin: warm, dry, intact. Neuro: Alert oriented x 3 normal cranial nerves, no focal deficits - Assessment and Plan (1) Defibrillator discharge Current Visit: Yes Status: Acute (2) Ventricular tachycardia Current Visit: Yes Status: Acute (3) Atrial fibrillation Current Visit: Yes Status: Acute (4) Systolic congestive heart failure Current Visit: Yes Status: Chronic (5) S/P ICD (internal cardiac defibrillator) procedure Current Visit: Yes Status: Acute (6) Cardiomyopathy Current Visit: Yes Status: Acute DVT Prophylaxis: Patient on anticoagulation with Eliquis - Summary of Assessment and Plan Summary of Assessment and Plan: AICD discharge/ventricular tachycardia: No further episodes since admission. Discussed with cardiology. Per AICD interrogation report, 6 V. fib episodes detected since last check with most recent one on 01/13. He has had 7 total shocks delivered since it was last checked. Per cardiology, will start patient on amiodarone drip and transition to oral amiodarone tomorrow. Atrial fibrillation: Rate controlled. Chronic. On anticoagulation with Eliquis. Chronic systolic congestive heart failure: Not in acute exacerbation at this time. Continue home medications. High risk for complications due to patient being on intravenous amiodarone. - Time Spent with Patient Total time spent is greater than 50% in coordination of care (as documented) at patient's floor/unit and/or counseling patient: Internal Medicine: Result - Labs CBC & Chem 7: 01/13/19 18:29 01/14/19 03:38 Labs: Short CBC 01/13/19 01/13/19 Range/Units 15:32 18:29 WBC 10.2 9.4 (4.3-11.1) K/mcL Hgb 14.9 15.0 (12.9-16.9) g/dL Hct 43.9 44.7 (37.5-50.1) % Plt Count 185 176 (140-400) K/mcL Neutrophils # 7.2 6.4 (1.6-8.9) K/mcL BMP 01/13/19 01/14/19 15:32 03:38 Sodium 139 139 Potassium 4.0 4.2 Chloride 105 108 H Carbon Dioxide 25 26 BUN 17 15 Creatinine 1.06 1.00 Glucose 97 99 Calcium 9.6 9.0 Cardiac Enzymes 01/13/19 01/13/19 Range/Units 15:32 21:32 Troponin I < 0.03 < 0.03 (< 0.04) ng/mL Liver Function 01/14/19 Range/Units 03:38 Total Bilirubin 0.8 (0.3-1.0) mg/dL Direct Bilirubin 0.2 (0.0-0.2) mg/dL AST 19 (13-39) Units/L ALT 18 (7-52) Units/L Alkaline Phosphatase 53 (34-104) Units/L Albumin 3.7 (3.5-5.7) g/dL - ABG Interpretation ABG results: PT/INR, D-dimer PT 13.3 Seconds (9.4-12.1) H 01/13/19 15:32 - Impressions Impressions Chest X-Ray 01/13/19 15:23 IMPRESSION: No radiographic evidence of acute cardiopulmonary disease. D/ / Antonio Cancino / Antonio Cancino Interpreting Provider: Antonio Cancino Consult Discharge Plan - Plan Referrals: Nalini Romero MD [Primary Care Provider] - (3) Atrial fibrillation Qualifiers: Atrial fibrillation type: chronic Qualified Code(s): I48.2 - Chronic atrial fibrillation (4) Systolic congestive heart failure Qualifiers: Heart failure chronicity: chronic Qualified Code(s): I50.22 - Chronic systolic (congestive) heart failure (6) Cardiomyopathy Qualifiers: Cardiomyopathy type: alcoholic Qualified Code(s): I42.6 - Alcoholic cardiomyopathy
[2019-01-14] MEDS ORDERED: Amiodarone Premix 360 MG/200 ML BAG IVC ONE (14:51)
--- NOTE | 2019-01-14 15:32 | Electrocardiograph Report ---
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
[2019-01-14] MEDS ORDERED: Amiodarone Premix 360 MG/200 ML BAG IVC SCH (20:51)
[2019-01-15] MEDS: *HR* OxyCODONE Immed Rel 5 MG TABLET PO PRN ×2 (07:55→13:41)
[2019-01-15] MEDS: Metoprolol XL (24 HR) Succ 50 MG TAB.ER.24H PO SCH (09:13)
[2019-01-15] MEDS: Aspirin Enteric Coated 81 MG Tablet PO SCH (09:14)
[2019-01-15] MEDS: Apixaban 5 MG TABLET PO SCH (09:14)
--- NOTE | 2019-01-15 11:03 | Cardiology Progress Note ---
<Roby Rothman - Last Filed: 01/15/19 13:16> Date of Encounter: 01/15/19 Time of Encounter: 10:15 Assessment and Plan (1) Defibrillator discharge Current Visit: Yes Status: Acute - Initially presented after multiple shocks from his defibrillator - Troponin was negative, CXR unremarkable - Per [facility] report: Patient had 2 episodes of his defibrillator firing on day of presentation; possibly for nonsustained VT; rate 207-214 - Etiology unknown at this time; likely secondary due to systolic heart failure - Per review of prior records, patient had previously been on Amiodarone, but was taken off of it - Yesterday, he was started on amiodarone drip - No acute events overnight - LFTs were within normal limits Plan - Will start patient on Amiodarone 200 mg PO daily - Patient normally follows with Dr. Rust; should see him within 2-4 weeks for followup (2) Systolic congestive heart failure Current Visit: Yes Status: Chronic - Patient has a known history of heart failure with reduced ejection fraction - TTE on 03/25/18: atrial fibrillation, LVEF 25-30%, severe global LV systolic dysfunction - He is status post ICD placement on 04/21/18 - No signs of volume overload on exam; not in exacerbation Qualifiers: Heart failure chronicity: chronic Qualified Code(s): I50.22 - Chronic systolic (congestive) heart failure (3) Atrial fibrillation Current Visit: Yes Status: Acute - Continue Eliquis Qualifiers: Atrial fibrillation type: chronic Qualified Code(s): I48.2 - Chronic atrial fibrillation (4) Cardiomyopathy Current Visit: No Status: Chronic - Continue home meds Qualifiers: Cardiomyopathy type: unspecified Qualified Code(s): I42.9 - Cardiomyopathy, unspecified Discussion w patient/family: The assessment and plan as outlined above was discussed with the patient and/or family members who expressed understanding and agreement. All questions were answered. Thank you for involving us in the care of your patient. Please call with any questions. Subjective Interval history: Patient seen and examined at bedside; he has no complaints today. No acute events overnight. 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 Patient is clear for discharge from cardiology standpoint. Objective Vital Signs, Last 4 Hours Temp Pulse Resp BP 01/15/19 08:00 98.5 F 73 18 128/94 Other: General: Conversant, No Apparent Distress HEENT: Atraumatic, Normocephaly, Mucus Membranes Moist Neck: No JVD, Normal carotid pulses Cardiac: Reg Rate and Rhythm, Normal S1 and S2, No Murmur Lungs: Normal Breath Sounds, No Wheeze, Rales, Rhonchi Neuro: Alert and responsive, No focal deficits noted Skin: No rashes noted on visualized skin Musculoskeletal: No Chest Wall Tenderness Extremities: No Clubbing, No Cyanosis, No Edema, Normal Pulses Results 01/13/19 18:29 01/14/19 03:38 Lab Results 01/14/19 03:38 Sodium 139 Potassium 4.2 Chloride 108 H Carbon Dioxide 26 BUN 15 Creatinine 1.00 Glucose 99 Calcium 9.0 Magnesium 2.0 Total Bilirubin 0.8 AST 19 ALT 18 Alkaline Phosphatase 53 Consult Discharge Plan - Plan Instructions: Amiodarone (By mouth), Atrial Fibrillation (DC), Supraventricular Tachycardia (DC), Implantable Cardioverter Defibrillator (DC) Referrals: Nalini Romero MD [Primary Care Provider] - 01/23/19 8:45 am Yariel Rust MD [Partnered Physician] - (Office will call patient at home with follow up appointment) Prescriptions: Amiodarone [Cordarone] 200 mg PO DAILY #30 tablet < A - Last Filed: 01/15/19 14:08> Date of Encounter: 01/15/19 Assessment and Plan Discussion w patient/family: The assessment and plan as outlined above was discussed with the patient and/or family members who expressed understanding and agreement. All questions were answered. Thank you for involving us in the care of your patient. Please call with any questions. Objective Vital Signs, Last 4 Hours Temp Pulse Resp BP 01/15/19 11:35 98.0 F 73 18 126/98 Results 01/13/19 18:29 01/14/19 03:38 Lab Results 01/14/19 03:38 Total Bilirubin 0.8 AST 19 ALT 18 Alkaline Phosphatase 53 - Attending Attestation I have personally performed a face to face evaluation on this patient. I have reviewed and agree with the documented findings and care plan as documented by the resident. History and Exam by me shows: Loaded with amiodarone for frequent ICD firing. Continue amiodarone 200 mg daily. Follow up as outpatient with coating machine helper regarding consideration for VT ablation. Thanks, Cristi Mcfarland MD [facility]
[2019-01-15 11:37] VITALS: BP 126/98
--- NOTE | 2019-01-15 12:03 | Discharge Summary ---
- NOTES TO OUTPATIENT PROVIDER Notes to Outpatient Provider: Patient was hospitalized after his AICD discharged twice this prior to presentation. AICD interrogation revealed that he had 6 episodes of V. fib since his previous check. Cardiology evaluated patient and started him on amiodarone drip yesterday. Transitioned to oral amiodarone today. Liver function normal. He will follow up with electrophysiology as outpatient in the next 2-3 weeks for further management. Date of Encounter: 01/15/19 Time of Encounter: 12:00 - Discharge Diagnosis (1) Defibrillator discharge Priority: Primary Status: Acute (2) Ventricular tachycardia Priority: Secondary Status: Acute (3) Atrial fibrillation Priority: Secondary Status: Acute Qualifiers: Atrial fibrillation type: chronic Qualified Code(s): I48.2 - Chronic atrial fibrillation (4) Systolic congestive heart failure Priority: Secondary Status: Chronic Qualifiers: Heart failure chronicity: chronic Qualified Code(s): I50.22 - Chronic systolic (congestive) heart failure (5) S/P ICD (internal cardiac defibrillator) procedure Priority: Secondary Status: Acute (6) Cardiomyopathy Priority: Secondary Status: Chronic Qualifiers: Cardiomyopathy type: alcoholic Qualified Code(s): I42.6 - Alcoholic cardiomyopathy Hospital course: Mr. Aburto is a 63 year old male Patient was hospitalized after his AICD discharged twice this prior to presentation. AICD interrogation revealed that he had 6 episodes of V. fib since his previous check. Cardiology evaluated patient and started him on amiodarone drip yesterday. Transitioned to oral amiodarone today. Liver function normal. He has not had any further episodes of AICD discharge since admission. He will follow up with electrophysiology as outpatient in the next 2-3 weeks for further management. Discharge discussed with: patient - Time Spent with Patient Total time spent providing and/or coordinating discharge services: Time spent: Less than 30 minutes (25 min) - Discharge Medications Prescriptions: New Amiodarone [Cordarone] 200 mg PO DAILY #30 tablet Continued Apixaban [Eliquis] 5 mg PO BID 30 Days #60 tablet Atorvastatin [Lipitor] 20 mg PO HS #60 tablet Aspirin [Lo-Dose Aspirin EC] 81 mg PO DAILY Metoprolol Succinate [Toprol Xl] 150 mg PO DAILY Home Medications: Apixaban [Eliquis] 5 mg PO BID 30 Days #60 tablet 08/27/17 [Rx] Atorvastatin [Lipitor] 20 mg PO HS #60 tablet 09/21/17 [Rx] Aspirin [Lo-Dose Aspirin EC] 81 mg PO DAILY 04/21/18 [History] Metoprolol Succinate [Toprol Xl] 150 mg PO DAILY 01/14/19 [History] Amiodarone [Cordarone] 200 mg PO DAILY #30 tablet 01/15/19 [Rx] Allergies/Adverse Reactions: Allergy/AdvReac Type Severity Reaction Status Date / Time No Known Allergies Allergy Verified 01/14/19 16:52 Date of admission: 01/13/19 18:15 Primary care physician: Nalini Romero MD Consults: 01/13/19 17:15 Consult to Cardiology [CONS] Stat Comment: Consulting Provider: Cardiology Rebeka Reason for Consult: defib firing Call Completed: Yes 01/13/19 21:32 Consult to On Air Announcer [CONS] Routine Reason for SW Consult: Pt has no insurance Discharging clinician: Mona Lockett Anticipated date of discharge: 01/15/19 - Constitutional Vitals: Temp Pulse Resp BP Pulse Ox 98.0 F 73 18 126/98 94 01/15/19 11:35 01/15/19 11:35 01/15/19 11:35 01/15/19 11:35 01/15/19 04:14 Exam: General: Patient is alert, no acute distress, oriented x 3 Respiratory: Good respiratory effort. Normal breath sounds. No wheezing or crackles. Cardiovascular: Irregularly irregular rhythm. s1 and s2 normal No clicks, rubs, gallops, or murmurs. No pedal edema Abdomen: Abdomen is soft, nontender. Bowel sounds are present Musculoskeletal: Spontaneously moving all extremities Skin: warm, dry, intact. Neuro: Alert oriented x 3 normal cranial nerves, no focal deficits - Patient Status Disposition: Home, Self-Care Condition: Good Functional capacity at discharge: independent ambulation Overall status at discharge: patient is progressing back to baseline - Discharge Instructions Instructions: Atrial Fibrillation (DC) Follow Up With: Nalini Romero MD [Primary Care Provider] - 01/23/19 8:45 am Yariel Rust MD [Partnered Physician] - (Office will call patient at home with follow up appointment) - Diet and Activity Activity: increase activity as tolerated Diet: low fat, low cholesterol, low salt diet
[2019-01-15] MEDS ORDERED: *HR* Amiodarone 200 MG TABLET PO SCH (13:12)
== END 2019-01-15 15:00 | disposition home or self-care (01) ==
LOC: 2NENU 15:17 → EMEROOARM 15:17 → SUATTDRO 18:15 → 2NENU 19:47 → 2NNU 01-14 15:46
PROVIDERS: ADMIT Internal Medicine; ATTEND Internal Medicine

== ENCOUNTER 2021-07-18 07:58 | Inpatient (IN) ==
[2021-07-18] MEDS ORDERED: 0.9 % Sodium Chloride 1,000 ML ONE ×3 (08:50→12:38)
[2021-07-18] MEDS ORDERED: Sugammadex Sodium 200 MG/2 ML VIAL IV ONE (09:11)
[2021-07-18] MEDS ORDERED: *HR* OxyCODONE Immed Rel 5 MG TABLET PO PRN (09:39)
[2021-07-18] MEDS ORDERED: Ondansetron 4 MG/2 ML VIAL IVP PRN (09:39)
[2021-07-18] MEDS ORDERED: *HR* HYDROmorphone PF 0.5 MG/0.5 ML SYRINGE IVP PRN (09:39)
[2021-07-18] MEDS ORDERED: *HR* FentaNYL (PF) 100 MCG/2 ML VIAL ONE (10:12)
[2021-07-18] MEDS ORDERED: Heparin 1,000 UNITS/500 mL 1,500 ML ONE (10:28)
[2021-07-18] MEDS ORDERED: *HR* Heparin 10,000 UNIT/10 ML VIAL ONE (10:28)
[2021-07-18] MEDS ORDERED: Protamine Sulfate 50 MG/5 ML VIAL IVP ONE (10:28)
[2021-07-18] MEDS ORDERED: ISOVUE-370 200 ML INFUS..BTL ONE (10:29)
[2021-07-18] MEDS ORDERED: Lidocaine -MPF 2% 5 ML VIAL SQ ONE (11:17)
[2021-07-18] MEDS ORDERED: EPHEDrine 50 MG/ML VIAL IVP ONE (11:17)
[2021-07-18] MEDS ORDERED: Lidocaine -MPF 4% 5 ML AMPUL TP ONE (11:17)
[2021-07-18] MEDS ORDERED: *HR* Succinylcholine 200 MG/10 ML VIAL IVP ONE (11:17)
[2021-07-18] MEDS ORDERED: Ondansetron 4 MG/2 ML VIAL IVP ONE (11:17)
[2021-07-18] MEDS ORDERED: *HR* Phenylephrine 10 MG/ML VIAL IVC ONE (11:17)
[2021-07-18] MEDS ORDERED: *HR* Rocuronium Bromide 50 MG/5 ML VIAL IVP ONE (11:17)
[2021-07-18] MEDS ORDERED: *HR* Propofol 200 MG/20 ML VIAL IVP ONE (11:17)
[2021-07-18] MEDS ORDERED: Perflutren Lipid Microsphere 1.3 ML in 0.9 % Sodium Chloride 8.7 ML IVP PRN (13:02)
[2021-07-18] MEDS: Apixaban 5 MG TABLET PO SCH (20:07)
[2021-07-19 05:44] LABS: INR 1.2; Prothrombin Time 13.4 Seconds (9.4-12.1)
[2021-07-19 05:47] LABS: Basophils % 0.2 %; Hematocrit 45.1 % (37.5-50.1); Immature Granulocytes % 0.6 % (0-4); Immature Platelets 10.6 % (1.1-6.1); Lymphocytes # 0.7 K/mcL (0.6-4.6); Lymphocytes % 14.1 %; Mean Corpuscular HGB Conc 33.3 g/dL (31.6-35.5); Mean Corpuscular Hemoglobin 33.3 pg (28.0-33.3); Mean Corpuscular Volume 100.2 fL (83.0-100.0); Mean Platelet Volume 11.6 fL (9.4-12.4); Monocytes # 0.6 K/mcL (0.0-1.3); Monocytes % 12.3 %; Neutrophils # 3.6 K/mcL (1.6-8.9); Platelet Count 120 K/mcL (140-400); Red Cell Distribution Width 12.5 % (11.5-14.5); Segmented Neutrophils % 72.8 %; White Blood Count 4.9 K/mcL (4.3-11.1)
[2021-07-19 06:01] LABS: BUN/Creatinine Ratio 21 (6-26); Blood Urea Nitrogen 15 mg/dL (8-23); Calcium 8.7 mg/dL (8.6-10.3); Carbon Dioxide 22 mEq/L (23-29); Chloride 105 mEq/L (98-107); Glucose 121 mg/dL (70-105); Osmolality,Calculated 282 (280-300); Potassium 3.8 mEq/L (3.5-5.1); Sodium 135 mEq/L (136-145); eGFR For African Americans > 60 (> 60); eGFR For Non-African Americans > 60 (> 60)
[2021-07-19 06:59] VITALS: BP 149/95; TEMP 97.9; O2SAT 99
[2021-07-19] MEDS: Apixaban 5 MG TABLET PO SCH (08:18)
[2021-07-19 08:29] VITALS: PULSE 62
[2021-07-19] MEDS ORDERED: Metoprolol XL (24 HR) Succ 50 MG TAB.ER.24H PO SCH (09:00)
[2021-07-19] MEDS ORDERED: Aspirin Enteric Coated 81 MG Tablet PO SCH (09:00)
== END 2021-07-19 11:18 | disposition home or self-care (01) | DRG 274 ==
LOC: INVDIALAB 07:58 → 2NNU 14:02
PROVIDERS: ADMIT Internal Medicine Clinical Cardiac Electrophysiology; ATTEND Internal Medicine Clinical Cardiac Electrophysiology